=== PATIENT | female | born 1980 | race Caucasian/White ===

== ENCOUNTER 2017-09-25 20:06 | Emergency (ER) | payer MEDICARE, MEDICAID, SELFPAY ==
[2017-09-25 20:08] VITALS: BP 142/51; PULSE 93; RESP 15; TEMP 36.4; BMI 33.7
--- NOTE | 2017-09-25 20:42 | ED.VISSUMM ---
- ER Visit Summary Date of Service: 09/25/17 Chief Complaint: Depressed and suicidal ideation History of Present Illness: The patient is a 37 F history of bipolar and schizoaffective disorder. Prior suicide attempt by multiple overdoses. Patient states that she recently had a miscarriage and has become more more depressed over the last several weeks and is now suicidal. She denies any attempt at this time. She was also recently admitted for inpatient detox at another facility she does have a history of methamphetamine abuse. Physical Examination: Well-appearing middle-age female. Vital signs are stable afebrile. She does not look septic or toxic. She is in no acute distress. Vital signs are stable afebrile. H EENT exam unremarkable. No smell of alcohol. Neck nontender no trauma. Lungs clear to auscultation bilaterally. Heart regular rate and rhythm no murmur. Abdomen soft nontender. She is moving all 4 extremities. Neurovascularly intact. There is no signs of trauma. She is an old scar on her left forearm from prior laceration. But it is not acute. Neurologically she is awake and alert with no focal motor deficits. Back exam nontender. Test Results: CBC shows white count 11.5 H&H of 727. Chemistries are normal. Patient's anemia is consistent with microcytic anemia. Liver enzymes normal. Serum test negative. Tox screen negative alcohol level was 4. Emergency Department Course and Treatment: Workup and crisis evaluation. Treatment Plan: Patient is doing well on repeat exam at 2244. Boubacar Kinney from the counseling center was evaluated. He is going to see if he can get her back in the [facility]. She is comfortable with that plan. Disposition: Discharge Impression: Acute suicidal ideation Acute depression History of schizoaffective disorder and bipolar disorder. History of drug abuse This note was generated with [employer] ([employer] dictation software. It may contain incorrect words, spelling, and punctuation that were not noted in review of the chart prior to signing ED Disposition - Plan for ED Patient: Chief Complaint: Suicidal Referrals: Silvia Morales MD [Primary Care Provider] -
--- NOTE | 2017-09-25 20:45 | ED.DCSUM_ITS ---
- ER Visit Summary Date of Service: 09/25/17 Chief Complaint: Depressed and suicidal ideation History of Present Illness: The patient is a 37 F history of bipolar and schizoaffective disorder. Prior suicide attempt by multiple overdoses. Patient states that she recently had a miscarriage and has become more more depressed over the last several weeks and is now suicidal. She denies any attempt at this time. She was also recently admitted for inpatient detox at another facility she does have a history of methamphetamine abuse. Physical Examination: Well-appearing middle-age female. Vital signs are stable afebrile. She does not look septic or toxic. She is in no acute distress. Vital signs are stable afebrile. H EENT exam unremarkable. No smell of alcohol. Neck nontender no trauma. Lungs clear to auscultation bilaterally. Heart regular rate and rhythm no murmur. Abdomen soft nontender. She is moving all 4 extremities. Neurovascularly intact. There is no signs of trauma. She is an old scar on her left forearm from prior laceration. But it is not acute. Neurologically she is awake and alert with no focal motor deficits. Back exam nontender. Test Results: CBC shows white count 11.5 H&H of 727. Chemistries are normal. Patient's anemia is consistent with microcytic anemia. Liver enzymes normal. Serum test negative. Tox screen negative alcohol level was 4. Emergency Department Course and Treatment: Workup and crisis evaluation. Treatment Plan: Patient is doing well on repeat exam at 2244. Boubacar Kinney from the counseling center was evaluated. He is going to see if he can get her back in the [facility]. She is comfortable with that plan. Disposition: Discharge Impression: Acute suicidal ideation Acute depression History of schizoaffective disorder and bipolar disorder. History of drug abuse This note was generated with [employer] dictation software. It may contain incorrect words, spelling, and punctuation that were not noted in review of the chart prior to signing ED Disposition - Plan for ED Patient: Chief Complaint: Suicidal Referrals: Silvia Moralse MD [Primary Care Provider] -
--- NOTE | 2017-09-25 20:51 | ED.RN ---
MEDICATION LIST UPDATED TO [facility] UNABLE TO RECALL MEDICATIONS
[2017-09-25 21:10] LABS: Absolute Lymphocyte Count 3.09 X10^3/ul (0.83-4.51); Basophil# 0.04 X10^3/uL; Basophil% 0.3 % (0-1); Eosinophil# 0.45 X10^3/uL; Eosinophils% 3.9 % (0-5); Hematocrit 27.2 % (37-47); Hemoglobin 7.8 g/dl (12.0-15.0); Lymphocyte # 3.09 X10^3/ul (4.0); Lymphocyte % 26.8 % (19-41); Mean Corp Hgb Conc 28.7 g/gl (32-36); Mean Corpuscular Hgb 20.9 pg (27.0-32.0); Mean Corpuscular Volume 72.9 fL (81-99); Mean Platelet Vol. 10.1 fl (6.2-12.0); Monocyte# 0.91 X10^3/uL; Monocyte% 7.9 % (0-10); Neutrophil # 6.99 X10^3/uL (2.7-7.7); Neutrophil % 60.8 % (47-70); Platelet Count 342 K/mm3 (150-450); RBC Distribution Width CV 22.4 % (11.6-14.6); RBC Distribution Width SD 60.1 fl (35.1-43.9); Red Blood Count 3.73 M/mm3 (4.2-5.4); White Blood Count 11.5 K/mm3 (4.4-11.0)
[2017-09-25 21:11] LABS: Differential Indicated SCAN CRITERIA MET; POSITIVE COUNT NO; POSITIVE DIFFERENTIAL NO; POSITIVE MORPHOLOGY YES
[2017-09-25 21:21] VITALS: RESP 14
[2017-09-25 21:21] LABS: ALB/GLOB Ratio 0.8 RATIO (0.9-2.4); AST(SGOT) 13 U/L (15-37); Alanine Aminotransfer ALT/SGPT 21 U/L (13-56); Albumin, Serum 3.6 g/dL (3.2-5.0); Alkaline Phosphatase 117 U/L (45-117); Anion Gap 6 (5-15); BUN 16 mg/dL (7-18); Calcium,Total 8.7 mg/dL (8.5-10.1); Chloride 107 mmol/L (98-107); Creatinine, Serum 0.67 mg/dL (0.55-1.02); EST Glomerular Filtration Rate 107 mL/min (>60); Est Glom Filt Rate - Afr Amer 129 mL/min (>60); Estimated Creatinine Clearance 113.97 ml/min; Globulin 4.3 g/dL (2.2-4.2); Glucose 88 mg/dL (74-106); Potassium 3.8 mmol/L (3.5-5.1); Protein, Total 7.9 g/dL (6.4-8.2); Sodium Level 138 mmol/L (136-145)
[2017-09-25 21:57] LABS: Amphetamine Urine VISTA NEGATIVE (<1000 ng/mL); Barbiturate Urine VISTA NEGATIVE (< 200 ng/mL); Benzodiazepine Urine VISTA NEGATIVE (< 200 ng/mL); Cocaine Urine VISTA NEGATIVE (< 300 ng/mL); Ecstacy Urine VISTA NEGATIVE (< 500 ng/mL); Methadone Urine VISTA NEGATIVE (< 300 ng/mL); PCP Urine VISTA NEGATIVE (< 25 ng/mL); THC Urine VISTA NEGATIVE (< 50 ng/mL); Vista UDS pH Range 6
[2017-09-25 21:58] LABS: Anisocytosis 4+; Differential Comment SCANNED; Hypochromasia 2+; Microcytosis 1+
[2017-09-25 21:59] LABS: Polychromasia RARE; Tear Drop Cell 1+
[2017-09-25 22:00] VITALS: RESP 16
[2017-09-25 22:00] LABS: Ovalocyte RARE
[2017-09-25 22:03] LABS: Pregnancy, Serum, hCG Quali. NEGATIVE Negative (0-9 Nonpreg); Reactive Lymphocyte RARE
[2017-09-25 22:04] LABS: Platelet Estimate ADEQUATE (ADEQ)
--- NOTE | 2017-09-25 22:47 | ED.DEP ---
ED Disposition - Plan for ED Patient: Disposition: Home or Assisted Living Chief Complaint: Suicidal Instructions: ED Depression Referrals: Counseling,Center [GROUP OF PHYSICIANS] - As soon as possible Additional Instructions: On follow-up with counseling center. Return to the ER if you are feeling more depressed and more suicidal
[2017-09-25 23:11] VITALS: RESP 18
[2017-09-27 09:53] LABS: Pathologist Review Reviewed
== END 2017-09-25 23:30 | disposition home or self-care (01) ==
PROVIDERS: Emergency Provider Emergency Medicine; Family Provider Internal Medicine; PCP Internal Medicine
DX: R45.851 Suicidal ideations (principal); F32.9 Major depressive disorder, single episode, unspecified; F20.9 Schizophrenia, unspecified; F15.11 Other stimulant abuse, in remission; Z72.0 Tobacco use; Z79.899 Other long term (current) drug therapy
CPT/HCPCS: 36415; 80053; 80307; 80320; 84703; 85025; 99283; G0480

== ENCOUNTER 2017-10-09 13:36 | Emergency (ER) | payer MEDICARE, MEDICAID, SELFPAY ==
[2017-10-09 13:37] VITALS: BP 140/96; PULSE 86; RESP 20; TEMP 36.6; O2SAT 96; BMI 31.3
--- NOTE | 2017-10-09 14:05 | ED.RN ---
pt belongings tagged and bagged. placed in safety containers.
--- NOTE | 2017-10-09 14:07 | EKG12_ITS ---
Test Reason : ANXIETY Blood Pressure : / mmHG Vent. Rate : 077 BPM Atrial Rate : 077 BPM P-R Int : 170 ms QRS Dur : 082 ms QT Int : 394 ms P-R-T Axes : 027 014 041 degrees QTc Int : 445 ms Normal sinus rhythm Normal ECG Confirmed by KEVIN WHEATLEY, MARIAH ([id number]), science editor BG MICHAELS ([id number]) on 10/11/2017 1:28:07 PM Referred By: MELLY Confirmed By:MARIAH BROWN MD
--- NOTE | 2017-10-09 14:42 | ED.VISSUMM ---
- ER Visit Summary Date of Service: 10/09/17 Chief Complaint: [] Anxiety palpitations History of Present Illness: The patient is a 37 F [] hx of anxiety and palpitations she apparently called the paramedics because she felt very anxious she has medication she states she is taking she has counselor she sees, she expressed to nursing that she had basically gone to some democrat last night she been up all day walking in the rain she denies being homicidal or suicidal she has a home, when she became anxious she wanted to talk to somebody so she called EMS Physical Examination: [] On exam she is in no distress resting comforting the bed there is no psychomotor agitation no suicidal homicidal ideation her vital signs are normal there is no palpitations or heart tones are regular at 80 her EKG shows a rate of 77 normal rhythm nothing acute head neck chest abdomen upper lower extremities unremarkable neurologic she is awake alert conversant talking she will intermittently expressed frustration with us somehow related to the fact that she does not want to talk to us, but for the most part she is cooperative and resting comfortably in the bed Test Results: [] Emergency Department Course and Treatment: [] Watch the patient here she is remained in platelet normal vital signs with no complaints her EKG is unremarkable I explained to she should stay in her anxiety medications follow-up with her psychological counselors and return for change in symptoms she understands the local counseling center and how to obtain access in care there Treatment Plan: [] Disposition: [] Home stable Impression: [] Anxiety and palpitations This note was generated with [employer] dictation software. It may contain incorrect words, spelling, and punctuation that were not noted in review of the chart prior to signing ED Disposition - Plan for ED Patient: Chief Complaint: Anxiety Referrals: Silvia Morales MD [Primary Care Provider] -
--- NOTE | 2017-10-09 14:44 | ED.DEP ---
ED Disposition - Plan for ED Patient: Chief Complaint: Anxiety Instructions: ED Stress React Referrals: Silvia Morales MD [Primary Care Provider] - Counseling,Center [GROUP OF PHYSICIANS] -
[2017-10-09 15:03] VITALS: BP 131/48; PULSE 70; RESP 14; O2SAT 99
== END 2017-10-09 15:05 | disposition home or self-care (01) ==
PROVIDERS: Emergency Provider Emergency Medicine; Family Provider Internal Medicine; PCP Internal Medicine
DX: R00.2 Palpitations (principal); F41.9 Anxiety disorder, unspecified
CPT/HCPCS: 93005; 99285

== ENCOUNTER 2017-10-25 17:34 | Emergency (ER) | payer MEDICARE, MEDICAID, SELFPAY ==
[2017-10-25 17:35] VITALS: BP 146/97; PULSE 84; RESP 18; TEMP 36.4; O2SAT 96; BMI 37.5
--- NOTE | 2017-10-25 18:04 | EKG12_ITS ---
Test Reason : MENTAL HEALTH Blood Pressure : / mmHG Vent. Rate : 056 BPM Atrial Rate : 056 BPM P-R Int : 132 ms QRS Dur : 082 ms QT Int : 428 ms P-R-T Axes : 006 013 049 degrees QTc Int : 413 ms Sinus bradycardia Otherwise normal ECG Confirmed by PEPITO VASQUEZ ([id number]), pictures editor BG MICHAELS ([id number]) on 11/07/2017 5:41:01 PM Referred By: AMAURI Confirmed By:PEPITO VASQUEZ
--- NOTE | 2017-10-25 18:11 | ED.RN ---
PT UNSURE OF MEDS
[2017-10-25 18:15] LABS: Absolute Lymphocyte Count 3.07 X10^3/ul (0.83-4.51); Absolute Neutrophil Count 6.3 X10^3/uL (2.0-7.7); Basophil# 0.02 X10^3/uL; Basophil% 0.2 % (0-1); Differential Indicated SCAN CRITERIA MET; Eosinophil# 0.28 X10^3/uL; Eosinophils% 2.7 % (0-5); Hematocrit 31.8 % (37-47); Hemoglobin 9.1 g/dl (12.0-15.0); Lymphocyte # 3.07 X10^3/ul (4.0); Lymphocyte % 29.2 % (19-41); Mean Corp Hgb Conc 28.6 g/gl (32-36); Mean Corpuscular Hgb 19.1 pg (27.0-32.0); Mean Corpuscular Volume 66.8 fL (81-99); Mean Platelet Vol. 9.7 fl (6.2-12.0); Monocyte# 0.81 X10^3/uL; Monocyte% 7.7 % (0-10); Neutrophil # 6.33 X10^3/uL (2.7-7.7); Neutrophil % 60.1 % (47-70); POSITIVE COUNT NO; POSITIVE DIFFERENTIAL NO; POSITIVE MORPHOLOGY YES; Platelet Count 352 K/mm3 (150-450); RBC Distribution Width CV 20.9 % (11.6-14.6); RBC Distribution Width SD 50.9 fl (35.1-43.9); Red Blood Count 4.76 M/mm3 (4.2-5.4); White Blood Count 10.5 K/mm3 (4.4-11.0)
[2017-10-25 18:32] LABS: Anisocytosis 2+; Hypochromasia 1+; Platelet Estimate ADEQUATE (ADEQ); Platelet Morphology LARGE; Polychromasia RARE
[2017-10-25 18:33] LABS: Microcytosis 2+
[2017-10-25 18:33] LABS: Amphetamine Urine VISTA NEGATIVE (<1000 ng/mL); Barbiturate Urine VISTA NEGATIVE (< 200 ng/mL); Benzodiazepine Urine VISTA NEGATIVE (< 200 ng/mL); Cocaine Urine VISTA NEGATIVE (< 300 ng/mL); Ecstacy Urine VISTA NEGATIVE (< 500 ng/mL); Methadone Urine VISTA NEGATIVE (< 300 ng/mL); Mucous, Urine 0 SEEN /hpf (<or=2+); PCP Urine VISTA NEGATIVE (< 25 ng/mL); THC Urine VISTA NEGATIVE (< 50 ng/mL); Vista UDS pH Range 6
[2017-10-25 18:54] LABS: Color, Urine Yellow (Yellow); Glucose, Dipstick Normal (Normal); Ketone-Dipstick Negative (Negative); Leukocyte Esterase-Dipstick 500 /ul (Negative); Nitrite-Dipstick Negative (Negative); Occult Blood-Urine Negative /ul (Negative); Protein-Dipstick Negative (Negative); Urine Bilirubin Dipstick Negative (Negative); Urine Clarity Sl. Cloudy (Clear); Urine Urobilinogen Normal (Normal)
[2017-10-25 19:00] LABS: ALB/GLOB Ratio 0.9 RATIO (0.9-2.4); AST(SGOT) 15 U/L (15-37); Alanine Aminotransfer ALT/SGPT 19 U/L (13-56); Alkaline Phosphatase 86 U/L (45-117); Anion Gap 9 (5-15); BUN 15 mg/dL (7-18); BUN/Creat Ratio 22.4 RATIO (10-20); Calcium,Total 8.6 mg/dL (8.5-10.1); Chloride 107 mmol/L (98-107); Creatinine, Serum 0.67 mg/dL (0.55-1.02); EST Glomerular Filtration Rate 106 mL/min (>60); Est Glom Filt Rate - Afr Amer 129 mL/min (>60); Estimated Creatinine Clearance 113.97 ml/min; Globulin 4.4 g/dL (2.2-4.2); Glucose 82 mg/dL (74-106); Potassium 3.9 mmol/L (3.5-5.1); Protein, Total 8.4 g/dL (6.4-8.2); Sodium Level 140 mmol/L (136-145); Thyroid Stim Hormone (TSH) 1.51 uIU/mL (0.358-3.74)
[2017-10-25 19:06] LABS: Pregnancy, Serum, hCG Quali. NEGATIVE Negative (0-9 Nonpreg)
[2017-10-25 19:06] LABS: Bacteria RARE /hpf (None Seen); Red Blood Cells-Urine 0-5 SEEN /hpf (0-5); Squamous Epithelial Cells - UA 0-5 SEEN /hpf (5-10); White Blood Cells 0-5 SEEN /hpf (0-5)
[2017-10-25 19:07] VITALS: RESP 16
--- NOTE | 2017-10-25 19:31 | ED.VISSUMM ---
- ER Visit Summary Date of Service: 10/25/17 Chief Complaint: Abnormal behavior History of Present Illness: The patient is a 37 F who has a history of bipolar disorder who was sent from the [facility] via the [place] [employer] with abnormal and delusional behavior. Patient is reportedly noncompliant with her medications. 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 Patient really cannot carry on a conversation. She laughs at odd times. Patient denies suicidal or homicidal ideation. She cannot tell me the last time she ate. Physical Examination: Afebrile vital signs are stable Gen: Well-nourished well-developed is very unkempt Head: Normocephalic atraumatic Eyes: Perrl EOMI ENT: TMs clear no rhinorrhea moist mucous membranes Neck: Supple no lymphadenopathy no JVD nontender CVS: Regular rate rhythm no murmurs normal S1-S2 Respiratory: No distress clear to auscultation bilaterally chest nontender Abdomen: Soft nontender nondistended normal bowel sounds no masses Back: Nontender Extremity: Nontender no edema Skin: Normal color no rash Neuro: Patient is hyper alert. She has no apparent deficits. Psych: Patient has obvious delusions and flight of ideas. She has pressured speech. I believe she is manic. Test Results: Psychiatric screening labs were obtained. Emergency Department Course and Treatment: Shunt was cleared for crisis and psychiatric evaluation. Plan will be admission into psychiatric facility. Impression: 1. Acute jillian 2. Bipolar disorder This note was generated with [employer] dictation software. It may contain incorrect words, spelling, and punctuation that were not noted in review of the chart prior to signing ED Disposition - Plan for ED Patient: Chief Complaint: Mental Health Referrals: Silvia Morales MD [Primary Care Provider] -
--- NOTE | 2017-10-25 19:34 | ED.DCSUM_ITS ---
- ER Visit Summary Date of Service: 10/25/17 Chief Complaint: Abnormal behavior History of Present Illness: The patient is a 37 F who has a history of bipolar disorder who was sent from the [facility] center via the [place] [employer] with abnormal and delusional behavior. Patient is reportedly noncompliant with her medications. 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 Patient really cannot carry on a conversation. She laughs at odd times. Patient denies suicidal or homicidal ideation. She cannot tell me the last time she ate. Physical Examination: Afebrile vital signs are stable Gen: Well-nourished well-developed is very unkempt Head: Normocephalic atraumatic Eyes: Perrl EOMI ENT: TMs clear no rhinorrhea moist mucous membranes Neck: Supple no lymphadenopathy no JVD nontender CVS: Regular rate rhythm no murmurs normal S1-S2 Respiratory: No distress clear to auscultation bilaterally chest nontender Abdomen: Soft nontender nondistended normal bowel sounds no masses Back: Nontender Extremity: Nontender no edema Skin: Normal color no rash Neuro: Patient is hyper alert. She has no apparent deficits. Psych: Patient has obvious delusions and flight of ideas. She has pressured speech. I believe she is manic. Test Results: Psychiatric screening labs were obtained. Emergency Department Course and Treatment: Shunt was cleared for crisis and psychiatric evaluation. Plan will be admission into psychiatric facility. Impression: 1. Acute jillian 2. Bipolar disorder This note was generated with [employer] dictation software. It may contain incorrect words, spelling, and punctuation that were not noted in review of the chart prior to signing ED Disposition - Plan for ED Patient: Chief Complaint: Mental Health Referrals: Silvia Morales MD [Primary Care Provider] -
[2017-10-25] MEDS: Haloperidol Lactate 5 MG/ML Vial 10 MG IM (20:17)
[2017-10-25 20:19] VITALS: BP 146/79; PULSE 72; RESP 26; O2SAT 100
[2017-10-25] MEDS: LORazepam 2 MG/ML Syringe IM (21:19)
[2017-10-25 23:05] VITALS: BP 109/44; PULSE 75; RESP 16; O2SAT 98
[2017-10-26] VITALS (17 sets, daily range): BP systolic 100–159; BP diastolic 53–99; PULSE 51–105; RESP 12–18; O2SAT 95–100
--- NOTE | 2017-10-26 06:28 | NURSING ---
WAITING TO HEAR FROM [facility].
--- NOTE | 2017-10-26 06:32 | NURSING ---
RESTRAINTS D/C AT 04:15
--- NOTE | 2017-10-26 08:55 | ED.RN ---
[facility]. THEY ARE WORKING ON PLACEMENT. GOING TO TRY [facility]
[2017-10-26] MEDS: Escitalopram Oxalate 20 MG Tablet PO (10:17)
[2017-10-26] MEDS: ARIPiprazole 5 MG Tablet PO (10:17)
--- NOTE | 2017-10-26 13:21 | ED.RN ---
JAIME NUÑEZ CALLED FROM THE [facility]. HE ASKED IF WE HAD HEARD FROM [facility]. HE WAS INFORMED THAT WE HAVE NOT HEARD FROM [facility] AND HE HAS BEEN TRYING TO CONTACT THE CENTRAL OFFICE AT [facility] TO SEE WHERE WE ARE WITH THE TRANSFER OF THIS PATIENT.
--- NOTE | 2017-10-26 15:44 | ED.RN ---
PER [facility] WITH CRISIS; PT HAS BEEN ACCEPTED BY [facility]; JUST WAITING ON A BED. THEY ARE HOPEFUL THAT IT WILL BE IN THE NEXT 1-2 HRS
[2017-10-26] MEDS: Acetaminophen 500 MG Tablet 1000 MG PO (16:56)
--- NOTE | 2017-10-26 18:00 | ED.RN ---
[facility] WILL CALL US BACK WITH AN UPDATE
== END 2017-10-26 19:09 ==
PROVIDERS: Emergency Provider Emergency Medicine; Family Provider Internal Medicine; PCP Internal Medicine
DX: F31.89 Other bipolar disorder (principal); Z91.14 Patient's other noncompliance with medication regimen; Z79.899 Other long term (current) drug therapy; Z72.0 Tobacco use
CPT/HCPCS: 80053; 80307; 80320; 81001; 84443; 84703; 85025; 93005; 96372; 99285; G0480

== ENCOUNTER 2020-11-16 19:19 | Emergency (ER) | payer MEDICARE, MEDICAID, SELFPAY ==
[2020-11-16 19:20] VITALS: BP 152/81; PULSE 74; RESP 16; TEMP 36.2; O2SAT 96; BMI 37.9
--- NOTE | 2020-11-16 20:18 | EX.ED.VIS.PS ---
HPI HPI - Psych History of Present Illness Chief Complaint: Mental Health Detail of Chief Complaint: Anxiety. Patient denies being homicidal or suicidal Informant: patient Onset/Context/Timing Onset: Days Context: Gradual Onset Timing: Intermittent Current Severity: Mild Maximum Severity: Mild Narrative Narrative: 40-year-old female suffers from psychiatric disorder and anxiety. States that she was on anxiety medication which she is now been off of for 2 weeks. She thinks it is making her more anxious or possibly she is withdrawing. She said she took her self off the medication because it was making her wet the bed she absolutely denies being suicidal or homicidal. States she was on the medication for about 2 years. She denies any nausea, vomiting, diarrhea or fever. Prior similar symptoms: Yes Recent Illness/Hospitalization: No PFSH PFSH Medical History Bipolar 1 disorder Home Medications escitalopram oxalate 10 mg PO DAILY 09/25/17 [History Last Taken Unknown] benztropine 1 mg DAILY PRN PRN 11/16/20 [History Last Taken Unknown] glipizide 5 mg PO DAILY 11/16/20 [History Last Taken Unknown] hydroxyzine pamoate 50 mg PO 4X/DAY PRN PRN 11/16/20 [History Last Taken Unknown] lithium carbonate 450 mg PO DAILY 11/16/20 [History Last Taken Unknown] metformin 500 mg PO BID 11/16/20 [History Last Taken Unknown] topiramate 25 mg PO DAILY 11/16/20 [History Last Taken Unknown] Allergy/AdvReac Type Severity Reaction Status Date / Time divalproex sodium Allergy Rash Verified 11/16/20 19:22 [From Depakote] fluphenazine enanthate Allergy Other Verified 11/16/20 19:22 [From Prolixin] fluphenazine HCl Allergy Other Verified 11/16/20 19:22 [From Prolixin] nalbuphine HCl [From Nubain] Allergy Hives Verified 11/16/20 19:22 nifedipine [From Procardia] Allergy Swelling Verified 11/16/20 19:22 Penicillins Allergy Swelling Verified 11/16/20 19:22 quetiapine fumarate Allergy Other Verified 11/16/20 19:22 [From Seroquel] risperidone [From Risperdal] Allergy Hives Verified 11/16/20 19:22 ziprasidone HCl [From Geodon] Allergy Other Verified 11/16/20 19:22 ziprasidone mesylate Allergy Other Verified 11/16/20 19:22 [From Geodon] Social History Smoking Status: Current every day smoker tobacco type: cigarettes ROS ROS ED ROS Narrative Patient denies any recent illness. Review of Systems ROS Unobtainable: Denies due to encephalopathy Constitutional Constitutional ED: Denies fever(s) Eyes Eyes: Denies change in vision ENT ENT ED: Denies ear pain or sore throat Cardiovascular Cardiovascular: Reports palpitations and racing heartbeat; Denies chest pain Respiratory/Chest Respiratory/Chest: Denies cough or dyspnea Gastrointestinal Gastrointestinal: Denies abdominal pain, diarrhea, nausea or vomiting Genitourinary Genitourinary ED: Denies dysuria Musculoskeletal Musculoskeletal: Denies myalgias Integumentary Denies rash Neurologic Neurologic: Denies headache(s) Psychiatric Psychiatric: Denies depression Endocrine Endocrinology: Denies polyuria Hematologic/Lymphatic Hematologic/Lymphatic: Denies easy bruising Allergic/Immunologic Allergic/Immunologic ED: Denies urticaria EXAM Physical Exam Narrative Exam Narrative: 32-year-old female no acute distress. Vital signs stable afebrile. She does not look septic or toxic. HEENT exam normal. Moist weeks memories. Lungs are clear equal symmetrical. Heart regular rhythm rate about 104. No murmur. Abdomen soft nontender. Moving all 4 extremities. No edema. Back nontender. Neurologically awake alert no focal motor deficits. No signs of toxidrome. Const Vital Signs: 11/16/20 19:20 Temperature 97.2 F L Temperature Source Temporal Pulse Rate 74 Respiratory Rate 16 Blood Pressure 152/81 H Blood Pressure Mean 104 Pulse Ox 96 Oxygen Delivery Method Room Air Positive well nourished and well developed General Appearance ED: well developed HEENT Reports moist mucous membranes normocephalic and atraumatic Eyes PERRL and EOMs intact bilaterally Neck no lymphadenopathy, supple and no JVD General: Negative for tenderness Resp normal respiratory effort and clear to auscultation bilaterally Cardio no murmurs Rate: tachycardic Rhythm: regular rhythm GI non-tender, non-distended and no masses Auscultation: normoactive bowel sounds Palpation: soft; Negative for tender Back/Spine no CVA tenderness Extremity normal to inspection General Extremety ED: Negative for edema or tenderness General Extremity: Negative for edema Neuro oriented x3 and CN's II-XII intact bilaterally Sensorium / Orientation: alert, oriented to person, oriented to place and oriented to time Motor Exam: strength 5/5 throughout Psych mental status grossly normal Skin Lesions: no lesions Rashes: no rashes MDM MDM MDM Narrative Medical decision making narrative: Patient with mild anxiety. Otherwise exam unremarkable. We checked the blood sugar was 110. She will be discharged home. Discharge Plan Triage Chief Complaint: Mental Health ED Provider: Jhonny Rodrigues Dx/Rx/DC Orders Clinical Impression: Anxiety Instructions: ED Anxiety Reaction Prescriptions: No Action escitalopram oxalate 20 MG tablet 10 mg PO DAILY RF: 0 metformin 500 mg Tablet 500 mg PO BID RF: 0 hydroxyzine pamoate 50 mg Capsule 50 mg PO 4X/DAY PRN PRN (Reason: Anxiety) RF: 0 topiramate 25 mg Tablet 25 mg PO DAILY RF: 0 lithium carbonate 450 mg Tablet Extended Release 450 mg PO DAILY RF: 0 benztropine 1 mg tablet 1 mg DAILY PRN PRN (Reason: Spasms) RF: 0 glipizide 5 mg Tablet 5 mg PO DAILY RF: 0 Primary Care Provider: Silvia Morales Referrals: Silvia Morales MD [Primary Care Provider] - As Needed Activity Restrictions/Additional Instructions: Your blood sugar was fine it was 110. Follow-up with your doctor as needed. Disposition Disposition: Home, self care
[2020-11-16 20:25] LABS: Bedside Glucose 110 mg/dL (70-110)
== END 2020-11-16 20:41 | disposition home or self-care (01) ==
LOC: ED 20:39
PROVIDERS: Emergency Provider Emergency Medicine
DX: F41.9 Anxiety disorder, unspecified (principal); F17.210 Nicotine dependence, cigarettes, uncomplicated; Z79.84 Long term (current) use of oral hypoglycemic drugs; Z79.899 Other long term (current) drug therapy
CPT/HCPCS: 82962; 99282

== ENCOUNTER 2021-08-13 23:59 | Emergency (ER) | payer MEDICARE, MEDICAID, SELFPAY ==
[2021-08-14] VITALS (9 sets, daily range): BP systolic 121–134; BP diastolic 64–78; PULSE 64–81; RESP 16–18; TEMP 36.6; O2SAT 94–99; BMI 34.2
--- NOTE | 2021-08-14 00:28 | EKG12_ITS ---
Test Reason : MENTAL HEALTH Blood Pressure : / mmHG Vent. Rate : 049 BPM Atrial Rate : 049 BPM P-R Int : 136 ms QRS Dur : 084 ms QT Int : 466 ms P-R-T Axes : 015 034 051 degrees QTc Int : 420 ms Sinus bradycardia Otherwise normal ECG Confirmed by CELESTE WHEATLEY, AMOS ([id number]), publishing editor POPEYE BRIDGES ([id number]) on 08/17/2021 11:07:25 A M Referred By: DIANA Confirmed By:ALYSON ALONSO MD
[2021-08-14 00:48] LABS: Internal QC Validated? YES +Cl - CLEAR BKGD; Pregnancy, Urine Negative Negative
[2021-08-14 00:48] LABS: Absolute Lymphocyte Count 4.08 X10^3/uL (0.83-4.51); Absolute Neutrophil Count 8.7 X10^3/uL (2.0-7.7); Basophil# 0.05 X10^3/uL; Basophil% 0.4 % (0-1); Eosinophil# 0.36 X10^3/uL; Eosinophils% 2.6 % (0-5); Hematocrit 41.2 % (37-47); Hemoglobin 13.4 g/dL (12.0-15.0); Lymphocyte # 4.08 X10^3/ul (0.83-4.51); Lymphocyte % 28.9 % (19-41); Mean Corp Hgb Conc 32.5 g/dL (32-36); Mean Corpuscular Hgb 24.9 pg (27.0-32.0); Mean Corpuscular Volume 76.4 fL (81-99); Mean Platelet Vol. 11.3 fl (6.2-12.0); Monocyte# 0.87 X10^3/uL; Monocyte% 6.2 % (0-10); NRBC Flagged by Analyzer 0 % (0-5); Neutrophil # 8.68 X10^3/uL (2.7-7.7); Neutrophil % 61.5 % (47-70); Platelet Count 357 K/mm3 (150-450); RBC Distribution Width CV 15.7 % (11.6-14.6); RBC Distribution Width SD 43.2 fl (35.1-43.9); Red Blood Count 5.39 M/mm3 (4.2-5.4); White Blood Count 14.1 K/mm3 (4.4-11.0)
[2021-08-14 01:04] LABS: Anion Gap 4 (5-15); BUN 16 mg/dL (7-18); BUN/Creat Ratio 19.6 RATIO (10-20); Calcium,Total 9.2 mg/dL (8.5-10.1); Chloride 106 mmol/L (98-107); Creatinine, Serum 0.82 mg/dL (0.55-1.02); EST Glomerular Filtration Rate 83 mL/min (>60); Est Glom Filt Rate - Afr Amer 100 mL/min (>60); Estimated Creatinine Clearance 86.23 ml/min; Glucose 91 mg/dL (74-106); Potassium 3.8 mmol/L (3.5-5.1); Sodium Level 138 mmol/L (136-145)
[2021-08-14 01:05] LABS: Amphetamine Urine VISTA NEGATIVE (<1000 ng/mL); Barbiturate Urine VISTA NEGATIVE (< 200 ng/mL); Benzodiazepine Urine VISTA NEGATIVE (< 200 ng/mL); Cocaine Urine VISTA POSITIVE (< 300 ng/mL); Ecstacy Urine VISTA NEGATIVE (< 500 ng/mL); Methadone Urine VISTA NEGATIVE (< 300 ng/mL); PCP Urine VISTA NEGATIVE (< 25 ng/mL); THC Urine VISTA NEGATIVE (< 50 ng/mL); Vista UDS pH Range 6
[2021-08-14 01:12] LABS: Acetaminophen (Tylenol) Level < 2.0 ug/mL (10.0-30.0); Salicylate 3.7 mg/dL (2.8-20.0)
--- NOTE | 2021-08-14 01:51 | EX.ED.DYSGE1 ---
HPI History of Present Illness Chief Complaint: Mental Health Narrative Narrative: Patient is a 41-year-old female who states in February 2021 she was admitted to a psychiatric hospital secondary to depression with suicidal ideation. She states that she was on medications for this for about 3 weeks when she was released but then after that stopped her medications. She states she feels like she is beginning to spiral out of control and has been having worsening thoughts of depression and suicidal ideation. She denies any plan at this time. She does state that 2 days ago she decided it would be a good idea to punch herself in the face multiple times. She states she was trying to hurt herself by doing this. She also admits to doing cocaine in the last few days which she states she will do every few weeks. At this time she reports depression with suicidal ideation but she denies any plan and she denies any homicidal ideation. She states that she feels she would benefit from placement in a psychiatric facility once again to try and get back on medication and therefore presents for evaluation. [facility] Medical History ADD (attention deficit disorder) Bipolar 1 disorder Depression Substance abuse Home Medications sulfamethoxazole-trimethoprim [Bactrim DS] 1 tab PO BID 5 Days #10 tab 08/14/21 [Rx Last Taken Unknown] Allergy/AdvReac Type Severity Reaction Status Date / Time divalproex sodium Allergy Rash Verified 11/16/20 19:22 [From Depakote] fluphenazine enanthate Allergy Other Verified 11/16/20 19:22 [From Prolixin] fluphenazine HCl Allergy Other Verified 11/16/20 19:22 [From Prolixin] nalbuphine HCl [From Nubain] Allergy Hives Verified 11/16/20 19:22 nifedipine [From Procardia] Allergy Swelling Verified 11/16/20 19:22 Penicillins Allergy Swelling Verified 11/16/20 19:22 quetiapine fumarate Allergy Other Verified 11/16/20 19:22 [From Seroquel] risperidone [From Risperdal] Allergy Hives Verified 11/16/20 19:22 ziprasidone HCl [From Geodon] Allergy Other Verified 11/16/20 19:22 ziprasidone mesylate Allergy Other Verified 11/16/20 19:22 [From Geodon] Social History Smoking Status: Current every day smoker tobacco type: cigarettes ROS ROS ED Constitutional Constitutional ED: Denies chills or fever(s) Eyes Eyes: Denies change in vision or diplopia ENT ENT ED: Denies sore throat Cardiovascular Cardiovascular: Denies chest pain Respiratory/Chest Respiratory/Chest: Denies cough or dyspnea Gastrointestinal Gastrointestinal: Denies abdominal pain, diarrhea, nausea or vomiting Genitourinary Genitourinary ED: Denies dysuria Musculoskeletal Musculoskeletal: Denies myalgias Integumentary Reports Abrasions; Denies rash Neurologic Neurologic: Denies headache(s) Psychiatric Psychiatric: Reports depression and suicidal thoughts Hematologic/Lymphatic Hematologic/Lymphatic: Denies easy bleeding or easy bruising EXAM Physical Exam Const Vital Signs: 08/14/21 00:00 08/14/21 02:15 08/14/21 03:15 Temperature 97.9 F Temperature Source Temporal Pulse Rate 75 Respiratory Rate 18 16 16 Blood Pressure 121/77 H Blood Pressure Mean 91 Pulse Ox 98 Oxygen Delivery Method Room Air 08/14/21 04:15 08/14/21 05:20 08/14/21 06:20 Temperature Temperature Source Pulse Rate Respiratory Rate 16 16 16 Blood Pressure Blood Pressure Mean Pulse Ox Oxygen Delivery Method 08/14/21 07:21 Temperature Temperature Source Pulse Rate 81 Respiratory Rate 18 Blood Pressure 131/64 H Blood Pressure Mean 86 Pulse Ox 94 Oxygen Delivery Method Room Air Positive well nourished, well developed and obese General Appearance ED: well developed Nutritional Appearance: obese HEENT Reports moist mucous membranes HEENT Narrative: Patient has swelling and ecchymosis around bilateral eyes consistent with her report of punching herself but otherwise there are no signs of depressed or basilar skull fracture. No septal hematoma noted Eyes PERRL and EOMs intact bilaterally Eyes Narrative: Swelling with ecchymosis around bilateral eyes consistent report of self-induced trauma. No hyphema noted. Neck supple Resp normal respiratory effort and clear to auscultation bilaterally Cardio regular rate and regular rhythm GI normal to inspection, nondistended, normoactive bowel sounds, non-tender, non-distended and no masses Auscultation: normoactive bowel sounds Palpation: soft Extremity normal to inspection Neuro oriented x3 and CN's II-XII intact bilaterally Sensorium / Orientation: alert Motor Exam: strength 5/5 throughout Psych Psych Narrative: Patient has a depressed affect with suicidal ideation but no homicidal ideation Mood & Affect: depressed Skin no rashes or lesions noted Skin Narrative: Soft tissue changes around the eyes as documented above MDM MDM MDM Narrative Medical decision making narrative: Presented to the ER with stable vitals. She reported that she has been having worsening suicidal ideation with depression but denies any plan. She does admit to recent cocaine use but states she has not had any within the last 2 days. She states that she would like to be readmitted as she was in February 2021 because she feels like her symptoms are beginning to spiral and she is afraid she may try and hurt herself if this is left unchecked. Secondary to this concern a psychiatric work-up was obtained. Work-up revealed elevated white blood cell count and urine sample does show infection which could be the cause of this. She does not have signs of urosepsis or acute kidney injury so therefore she just requires oral antibiotic. She did test positive for cocaine consistent with her report of using it 2 days ago but her EKG is totally sinus bradycardia and she is not hypertensive which goes against any type of immediate ingestion. Therefore at this time the patient is medically cleared from an ER standpoint. The patient was evaluated by crisis center and they agree that with her worsening symptoms and request for admission at they will attempt placement at this time. The patient is medically cleared for placement/transfer to a psychiatric facility. Lab Data Attestation: I reviewed the patient's lab results. Labs: Laboratory Results - last 24 hr 08/14/21 08/14/21 08/14/21 00:10 00:10 00:10 WBC RBC Hgb Hct MCV MCH MCHC RDW Std Deviation RDW Coeff of Deonte Plt Count MPV Immature Gran % (Auto) Neut % (Auto) Lymph % (Auto) [place] % (Auto) Eos % (Auto) Baso % (Auto) Absolute Neuts (auto) Absolute Lymphs (auto) Nucleated RBC % Sodium Potassium Chloride Carbon Dioxide Anion Gap BUN Creatinine Estim Creat Clear Calc Est GFR (MDRD) Af Amer Est GFR (MDRD) Non-Af BUN/Creatinine Ratio Glucose Calcium Urine Color Yellow Urine Clarity Clear Urine pH 7.0 Ur Specific [place] 1.015 Urine Protein 15 H Urine Glucose (UA) Normal Urine Ketones Negative Urine Occult Blood 50 H Urine Nitrite Negative Urine Bilirubin Negative Urine Urobilinogen Normal Ur Leukocyte Esterase 500 H Urine RBC 0 SEEN Urine WBC 10-25 SEEN Ur Squamous Epith Cells 0-5 SEEN Urine Bacteria 1+ Urine Mucus 0 SEEN Urine Test Negative Salicylates Urine Opiates Screen NEGATIVE Urine Methadone Screen NEGATIVE Acetaminophen Ur Barbiturates Screen NEGATIVE Ur Phencyclidine Scrn NEGATIVE Ur Amphetamines Screen NEGATIVE MDMA (Ecstasy) Screen NEGATIVE U Benzodiazepines Scrn NEGATIVE Urine Cocaine Screen POSITIVE H U Cannabinoids Screen NEGATIVE Ur Drug Screen Comment Ethyl Alcohol 08/14/21 08/14/21 08/14/21 00:30 00:30 00:30 WBC 14.1 H RBC 5.39 Hgb 13.4 Hct 41.2 MCV 76.4 L MCH 24.9 L MCHC 32.5 RDW Std Deviation 43.2 RDW Coeff of Deonte 15.7 H Plt Count 357 MPV 11.3 Immature Gran % (Auto) 0.400 Neut % (Auto) 61.5 Lymph % (Auto) 28.9 [place] % (Auto) 6.2 Eos % (Auto) 2.6 Baso % (Auto) 0.4 Absolute Neuts (auto) 8.7 H Absolute Lymphs (auto) 4.08 Nucleated RBC % 0 Sodium 138 Potassium 3.8 Chloride 106 Carbon Dioxide 28.0 Anion Gap 4 L BUN 16 Creatinine 0.82 Estim Creat Clear Calc 86.23 Est GFR (MDRD) Af Amer 100 Est GFR (MDRD) Non-Af 83 BUN/Creatinine Ratio 19.6 Glucose 91 Calcium 9.2 Urine Color Urine Clarity Urine pH Ur Specific [place] Urine Protein Urine Glucose (UA) Urine Ketones Urine Occult Blood Urine Nitrite Urine Bilirubin Urine Urobilinogen Ur Leukocyte Esterase Urine RBC Urine WBC Ur Squamous Epith Cells Urine Bacteria Urine Mucus Urine Test Salicylates 3.7 Urine Opiates Screen Urine Methadone Screen Acetaminophen < 2.0 L Ur Barbiturates Screen Ur Phencyclidine Scrn Ur Amphetamines Screen MDMA (Ecstasy) Screen U Benzodiazepines Scrn Urine Cocaine Screen U Cannabinoids Screen Ur Drug Screen Comment Ethyl Alcohol 13.0 Discharge Plan Triage Chief Complaint: Mental Health ED Provider: Chaparro Kimble Dx/Rx/DC Orders Clinical Impression: Depression with suicidal ideation, Urinary tract infection Prescriptions: New sulfamethoxazole-trimethoprim [Bactrim DS] 800-160 mg tablet 1 tab PO BID 5 Days Qty: 10 RF: 0 Primary Care Provider: Yosvany Cox NP Referrals: Yosvany Cox BLOCKING MACHINE TENDER, BLOCKING MACHINE TENDER-C [Primary Care Provider] - Disposition Disposition: Psychiatric Hospital or Unit
[2021-08-14 02:24] LABS: Mucous, Urine 0 SEEN /hpf (<or=2+); Red Blood Cells-Urine 0 SEEN /hpf (0-5)
[2021-08-14 02:25] LABS: Color, Urine Yellow (Yellow); Glucose, Dipstick Normal (Normal); Ketone-Dipstick Negative (Negative); Leukocyte Esterase-Dipstick 500 /ul (Negative); Nitrite-Dipstick Negative (Negative); Occult Blood-Urine 50 /ul (Negative); Protein-Dipstick 15 mg/dl (Negative); Specific Gravity, Urine 1.015 (1.002-1.030); Urine Bilirubin Dipstick Negative (Negative); Urine Clarity Clear (Clear); Urine Urobilinogen Normal (Normal)
[2021-08-14 02:31] LABS: Bacteria 1+ /hpf (None Seen); Squamous Epithelial Cells - UA 0-5 SEEN /hpf (5-10); White Blood Cells 10-25 SEEN /hpf (0-5)
[2021-08-14] MEDS: Smz/Tmp Ds Tablet 1 TABLET PO (07:22)
[2021-08-14] MEDS: hydrOXYzine PAM 25 MG Capsule 50 MG PO ×2 (08:59→15:32)
--- NOTE | 2021-08-14 11:57 | CM.ED ---
Social Work Telephone call from Crisis, patient accepted to [facility] by Dr. Mason to [facility]. Nurse to call report to [phone]. Patient, medical team and patient father updated on above. Lactation Consultant to set up transportation. PLAN: [facility] [place], [place]
--- NOTE | 2021-08-14 12:45 | ED.RN ---
CALLED PHYSICIANS FOR A RIDE, THE ETA IS 4 HOURS. ACCEPTED AT [facility].
[2021-08-14] MEDS: Acetaminophen 500 MG Tablet 1000 MG PO (12:51)
== END 2021-08-14 15:45 ==
PROVIDERS: Emergency Provider Emergency Medicine; PCP Nurse Practitioner Primary Care; Visit Provider Emergency Medicine
DX: F32.A Depression, unspecified (principal); R45.851 Suicidal ideations; N39.0 Urinary tract infection, site not specified; F17.210 Nicotine dependence, cigarettes, uncomplicated; E66.9 Obesity, unspecified
CPT/HCPCS: 80048; 80307; 80329; 81001; 81025; 82077; 85025; 87811; 93005; 99285; G0480

== ENCOUNTER 2021-09-11 15:52 | Emergency (ER) | payer MEDICARE, MEDICAID, SELFPAY ==
[2021-09-11 15:53] VITALS: BP 148/128; PULSE 102; RESP 16; TEMP 36.6; O2SAT 98; BMI 34.2
--- NOTE | 2021-09-11 16:12 | ED.RN ---
Patient became more agitated and upset while this nurse was assessing and asking assessment questions. Patient denies suicidal ideation multi times. Patient became increasingly agitated when this nurse gave her socks due to coming to the ED without shoes. Patient then gets up and walks out of the department saying she was leaving. Patient then came back into the department with her father. Patient continues to be agitated and once again denies suicidal ideation. This nurse will continue to monitor and father is at the bedside.
[2021-09-11 17:18] LABS: Absolute Lymphocyte Count 2.98 X10^3/uL (0.83-4.51); Absolute Neutrophil Count 10.6 X10^3/uL (2.0-7.7); Basophil# 0.06 X10^3/uL; Basophil% 0.4 % (0-1); Eosinophil# 0.37 X10^3/uL; Eosinophils% 2.5 % (0-5); Hematocrit 39.3 % (37-47); Hemoglobin 12.5 g/dL (12.0-15.0); Lymphocyte # 2.98 X10^3/ul (0.83-4.51); Lymphocyte % 19.7 % (19-41); Mean Corp Hgb Conc 31.8 g/dL (32-36); Mean Corpuscular Hgb 24.3 pg (27.0-32.0); Mean Corpuscular Volume 76.3 fL (81-99); Mean Platelet Vol. 10.7 fl (6.2-12.0); Monocyte# 1.08 X10^3/uL; Monocyte% 7.2 % (0-10); NRBC Flagged by Analyzer 0 % (0-5); Neutrophil # 10.56 X10^3/uL (2.7-7.7); Neutrophil % 69.9 % (47-70); Platelet Count 364 K/mm3 (150-450); RBC Distribution Width CV 16.1 % (11.6-14.6); RBC Distribution Width SD 43.7 fl (35.1-43.9); Red Blood Count 5.15 M/mm3 (4.2-5.4); White Blood Count 15.1 K/mm3 (4.4-11.0)
--- NOTE | 2021-09-11 17:24 | EDS_ITS ---
HPI History of Present Illness Chief Complaint: Substance Abuse Informant: patient Onset/Context/Timing Onset: Days (3) Timing: Continuous Quality: Confused, difficulty communicating Location: Generalized Worsened by: Nothing Relieved by: Nothing Narrative Narrative: Patient presents with confusion and difficulty communicating. Patient states she used meth 3 days ago. Patient states she has not used any since that time. Patient states that she has been having difficulty communicating what she wants to say. Patient denies any difficulty talking however. She feels like people do not understand what she is trying to tell them. Patient admits to a mild headache. Patient admits to a sore throat and rhinorrhea. Patient denies any chest pain or shortness of breath. Patient denies any nausea or vomiting. [facility] Medical History ADD (attention deficit disorder) Bipolar 1 disorder Depression Substance abuse Home Medications sulfamethoxazole-trimethoprim [Bactrim DS] 1 tab PO BID 5 Days #10 tab 08/14/21 [Rx Last Taken Unknown] Allergy/AdvReac Type Severity Reaction Status Date / Time divalproex sodium Allergy Rash Verified 09/11/21 15:57 [From Depakote] fluphenazine enanthate Allergy Other Verified 09/11/21 15:57 [From Prolixin] fluphenazine HCl Allergy Other Verified 09/11/21 15:57 [From Prolixin] nalbuphine HCl [From Nubain] Allergy Hives Verified 09/11/21 15:57 nifedipine [From Procardia] Allergy Swelling Verified 09/11/21 15:57 Penicillins Allergy Swelling Verified 09/11/21 15:57 quetiapine fumarate Allergy Other Verified 09/11/21 15:57 [From Seroquel] risperidone [From Risperdal] Allergy Hives Verified 09/11/21 15:57 ziprasidone HCl [From Geodon] Allergy Other Verified 09/11/21 15:57 ziprasidone mesylate Allergy Other Verified 09/11/21 15:57 [From Geodon] Social History Smoking Status: Current every day smoker tobacco type: cigarettes ROS ROS ED Constitutional Constitutional ED: Denies chills or fever(s) Eyes Eyes: Denies blurry vision or change in vision ENT ENT ED: Reports rhinorrhea and sore throat Cardiovascular Cardiovascular: Denies chest pain or palpitations Respiratory/Chest Respiratory/Chest: Denies cough or dyspnea Gastrointestinal Gastrointestinal: Denies nausea or vomiting Genitourinary Genitourinary ED: Denies dysuria or hematuria Musculoskeletal Musculoskeletal: Denies back pain or neck pain Integumentary Denies abscess or rash Neurologic Neurologic: Reports headache(s); Denies weakness Allergic/Immunologic Allergic/Immunologic ED: Denies mouth swelling or urticaria EXAM Physical Exam Const Vital Signs: 09/11/21 15:53 09/11/21 18:13 09/11/21 18:58 Temperature 98 F Temperature Source Temporal Pulse Rate 102 H 92 107 H Respiratory Rate 16 22 H 17 Blood Pressure 148/128 H 123/103 H Blood Pressure Mean 134 109 Pulse Ox 98 98 96 Oxygen Delivery Method Room Air Room Air Positive well nourished, well developed, obese and unkempt General Appearance ED: unkempt, well developed and NAD Nutritional Appearance: obese HEENT Reports moist mucous membranes Neck supple and no JVD Resp normal respiratory effort and clear to auscultation bilaterally Cardio regular rate, regular rhythm and no murmurs GI normal to inspection, nondistended, normoactive bowel sounds and non-tender Palpation: soft Extremity normal to inspection General Extremety ED: Negative for edema or tenderness General Extremity: Negative for edema Neuro oriented x3, CN's II-XII intact bilaterally and no sensory deficits noted Sensorium / Orientation: alert Motor Exam: strength 5/5 throughout Psych mental status grossly normal Appearance: unkempt Skin no rashes or lesions noted MDM MDM MDM Narrative Medical decision making narrative: CT scan of the brain was obtained. There is no acute intracranial abnormality. This was interpreted by the radiologist and reviewed by myself. CBC shows a mild leukocytosis of 15.1. Comprehensive metabolic profile was within normal limits. Serum hCG was negative. Urinalysis does not show any evidence of urinary tract infection. Patient was having difficulty laying still during CT scan. Patient was ordered a dose of Ativan to help with this. Patient refused this. Patient states she wants to go home. Patient was instructed to follow-up with her primary care physician in 5 to 7 days. Patient understood and was agreeable with the plan. All questions were answered. Lab Data Labs: Laboratory Results - last 24 hr 04/09/11/21 09/11/21 17:07 17:07 17:07 WBC 15.1 H RBC 5.15 Hgb 12.5 Hct 39.3 MCV 76.3 L MCH 24.3 L MCHC 31.8 L RDW Std Deviation 43.7 RDW Coeff of Deonte 16.1 H Plt Count 364 MPV 10.7 Immature Gran % (Auto) 0.300 Neut % (Auto) 69.9 Lymph % (Auto) 19.7 [place] % (Auto) 7.2 Eos % (Auto) 2.5 Baso % (Auto) 0.4 Absolute Neuts (auto) 10.6 H Absolute Lymphs (auto) 2.98 Nucleated RBC % 0 Sodium 136 Potassium 3.7 Chloride 104 Carbon Dioxide 25.0 Anion Gap 7 BUN 11 Creatinine 0.66 Estim Creat Clear Calc 107.13 Est GFR (MDRD) Af Amer 127 Est GFR (MDRD) Non-Af 105 BUN/Creatinine Ratio 16.6 Glucose 103 Calcium 8.9 Total Bilirubin 0.50 AST 27 ALT 41 Alkaline Phosphatase 113 Total Protein 7.8 Albumin 3.8 Globulin 4.0 Albumin/Globulin Ratio 1.0 Serum , Qual NEGATIVE Urine Color Urine Clarity Urine pH Ur Specific [place] Urine Protein Urine Glucose (UA) Urine Ketones Urine Occult Blood Urine Nitrite Urine Bilirubin Urine Urobilinogen Ur Leukocyte Esterase Urine RBC Urine WBC Ur Squamous Epith Cells Urine Bacteria Urine Mucus 09/11/21 17:26 WBC RBC Hgb Hct MCV MCH MCHC RDW Std Deviation RDW Coeff of Deonte Plt Count MPV Immature Gran % (Auto) Neut % (Auto) Lymph % (Auto) [place] % (Auto) Eos % (Auto) Baso % (Auto) Absolute Neuts (auto) Absolute Lymphs (auto) Nucleated RBC % Sodium Potassium Chloride Carbon Dioxide Anion Gap BUN Creatinine Estim Creat Clear Calc Est GFR (MDRD) Af Amer Est GFR (MDRD) Non-Af BUN/Creatinine Ratio Glucose Calcium Total Bilirubin AST ALT Alkaline Phosphatase Total Protein Albumin Globulin Albumin/Globulin Ratio Serum , Qual Urine Color Yellow Urine Clarity Clear Urine pH 6.0 Ur Specific [place] 1.020 Urine Protein Negative Urine Glucose (UA) Normal Urine Ketones 15 H Urine Occult Blood Negative Urine Nitrite Negative Urine Bilirubin Negative Urine Urobilinogen Normal Ur Leukocyte Esterase Negative Urine RBC 0 SEEN Urine WBC 0 SEEN Ur Squamous Epith Cells 0-5 SEEN Urine Bacteria 0 SEEN Urine Mucus 0 SEEN Radiography Diagnostic Testing: Clinical Impression(s) from Imaging Studies Brain CT 09/11/21 17:45 IMPRESSION: Negative head/brain CT without intravenous contrast. Electronically Signed: Jhoan Ott MD at 18:17 EDT , Discharge Plan Triage Chief Complaint: Substance Abuse ED Provider: Donald Shen Dx/Rx/DC Orders Clinical Impression: Anxiety, Methamphetamine abuse Instructions: ED Anxiety Reaction, ED Drug Abuse Prescriptions: No Action sulfamethoxazole-trimethoprim [Bactrim DS] 800-160 mg tablet 1 tab PO BID 5 Days Qty: 10 RF: 0 Primary Care Provider: Yosvany Cox NP Referrals: Yosvany Cox CABLE TELEVISION TECHNICIAN, CABLE TELEVISION TECHNICIAN-C [Primary Care Provider] - 3-5 Days Disposition Disposition: Home, Self Care Discharge Date/Time: 09/11/21 18:59
[2021-09-11 17:28] LABS: Internal QC Validated? YES +Cl - CLEAR BKGD; Pregnancy, Serum, hCG Quali. NEGATIVE Negative
[2021-09-11 17:34] LABS: AST(SGOT) 27 U/L (15-37); Alanine Aminotransfer ALT/SGPT 41 U/L (13-56); Albumin, Serum 3.8 g/dL (3.2-5.0); Alkaline Phosphatase 113 U/L (45-117); Anion Gap 7 (5-15); BUN 11 mg/dL (7-18); BUN/Creat Ratio 16.6 RATIO (10-20); Calcium,Total 8.9 mg/dL (8.5-10.1); Chloride 104 mmol/L (98-107); Creatinine, Serum 0.66 mg/dL (0.55-1.02); EST Glomerular Filtration Rate 105 mL/min (>60); Est Glom Filt Rate - Afr Amer 127 mL/min (>60); Estimated Creatinine Clearance 107.13 ml/min; Glucose 103 mg/dL (74-106); Potassium 3.7 mmol/L (3.5-5.1); Protein, Total 7.8 g/dL (6.4-8.2); Sodium Level 136 mmol/L (136-145)
[2021-09-11 17:36] LABS: Bacteria 0 SEEN /hpf (None Seen); Mucous, Urine 0 SEEN /hpf (<or=2+); Red Blood Cells-Urine 0 SEEN /hpf (0-5); White Blood Cells 0 SEEN /hpf (0-5)
[2021-09-11 17:39] LABS: Color, Urine Yellow (Yellow); Glucose, Dipstick Normal (Normal); Ketone-Dipstick 15 mg/dl (Negative); Leukocyte Esterase-Dipstick Negative /ul (Negative); Nitrite-Dipstick Negative (Negative); Occult Blood-Urine Negative /ul (Negative); Protein-Dipstick Negative (Negative); Urine Bilirubin Dipstick Negative (Negative); Urine Clarity Clear (Clear); Urine Urobilinogen Normal (Normal)
[2021-09-11 17:44] LABS: Squamous Epithelial Cells - UA 0-5 SEEN /hpf (5-10)
--- NOTE | 2021-09-11 17:45 | CT_ITS ---
EXAM: CT HEAD WITHOUT INTRAVENOUS CONTRAST CLINICAL INDICATION: Confusion TECHNIQUE: Multiple axial images were obtained of the head without intravenous contrast. This CT exam was performed using one or more of the following dose reduction techniques: automated exposure control, adjustment of the mA and/or kV according to patient size, and/or use of iterative reconstruction technique. This report was created using [employer] report generation technology. RADIATION DOSAGE (If Required by State): CTDIvol = 44.99 mGy, DLP = 897.35 mGycm. COMPARISON: None. FINDINGS: BRAIN AND EXTRA-AXIAL SPACES: Unremarkable. No intra- or extra-axial hemorrhage. No evidence of acute infarct. No intracranial mass or mass effect. There is preservation of the rodriguez/white matter interface. Posterior fossa structures are unremarkable. Ventricles are appropriate for age. No hydrocephalus. Basal cisterns are patent. BONES/JOINTS: Unremarkable. No discrete lytic or blastic abnormalities. SINUSES: Unremarkable as visualized. Clear. MASTOID AIR CELLS: Unremarkable. Clear. ORBITS: Visualized globes, extraocular muscles, optic nerves and retrobulbar fat appear unremarkable. CT/Brain/Head without Contrast IMPRESSION: Negative head/brain CT without intravenous contrast. Electronically Signed: Jhoan Ott MD at 18:17 EDT ,
[2021-09-11] MEDS: LORazepam 2 MG/ML Syringe 1 MG IV (18:08)
[2021-09-11 18:13] VITALS: BP 123/103; PULSE 92; RESP 22; O2SAT 98
--- NOTE | 2021-09-11 18:37 | CM.ED ---
SW Note SW spoke to MD. No social work referral for mental health at this time per MD. MD plans to make referral to [facility] for patient. PAVITHRA provided RN Polly Livingston with resource list to provide to patient. (PAVITHRA did not give resource list as patient continues to be paranoid related to drug (meth) use). Karis ELLIS
[2021-09-11 18:58] VITALS: PULSE 107; RESP 17; O2SAT 96
== END 2021-09-11 18:59 | disposition home or self-care (01) ==
PROVIDERS: Emergency Provider Emergency Medicine; PCP Nurse Practitioner Primary Care; Visit Provider Emergency Medicine
DX: F41.9 Anxiety disorder, unspecified (principal); F15.10 Other stimulant abuse, uncomplicated; J02.9 Acute pharyngitis, unspecified; R41.0 Disorientation, unspecified; F17.210 Nicotine dependence, cigarettes, uncomplicated; R51.9 Headache, unspecified
CPT/HCPCS: 70450; 80053; 81001; 84703; 85025; 96374; 99284; A4216

== ENCOUNTER 2021-10-01 09:12 | Emergency (ER) | payer MEDICARE, MEDICAID, SELFPAY ==
[2021-10-01 09:14] VITALS: BP 157/120; PULSE 113; RESP 16; TEMP 35.6; O2SAT 96; BMI 32.8
[2021-10-01 09:47] LABS: Absolute Lymphocyte Count 2.71 X10^3/uL (0.83-4.51); Absolute Neutrophil Count 10.7 X10^3/uL (2.0-7.7); Basophil# 0.07 X10^3/uL; Basophil% 0.5 % (0-1); Eosinophil# 0.35 X10^3/uL; Eosinophils% 2.3 % (0-5); Hematocrit 37.1 % (37-47); Hemoglobin 11.7 g/dL (12.0-15.0); Lymphocyte # 2.71 X10^3/ul (0.83-4.51); Lymphocyte % 18.2 % (19-41); Mean Corp Hgb Conc 31.5 g/dL (32-36); Mean Corpuscular Hgb 23.8 pg (27.0-32.0); Mean Corpuscular Volume 75.6 fL (81-99); Mean Platelet Vol. 10.6 fl (6.2-12.0); Monocyte# 1.09 X10^3/uL; Monocyte% 7.3 % (0-10); NRBC Flagged by Analyzer 0 % (0-5); Neutrophil # 10.65 X10^3/uL (2.7-7.7); Neutrophil % 71.4 % (47-70); Platelet Count 391 K/mm3 (150-450); RBC Distribution Width CV 15.7 % (11.6-14.6); RBC Distribution Width SD 42.6 fl (35.1-43.9); Red Blood Count 4.91 M/mm3 (4.2-5.4); White Blood Count 14.9 K/mm3 (4.4-11.0)
--- NOTE | 2021-10-01 09:50 | EX.ED.SAOD ---
HPI History of Present Illness Chief Complaint: Substance Abuse Narrative Narrative: 41-year-old female with history of methamphetamine use presenting with concern that he either coming down from methamphetamine use 2 days ago or that she might be withdrawing from but was possibly an opioid mixed with her methamphetamine. She states that whenever she took was stronger. She states she took 2 hotlines of it. Patient states that currently she feels a little jittery. She does not feel confused. She states she does not typically do any kind of opioid. She does say that she used to do crack but has not done this in a long time. Denies EtOH abuse. [facility] Medical History ADD (attention deficit disorder) Bipolar 1 disorder Depression Substance abuse Allergy/AdvReac Type Severity Reaction Status Date / Time divalproex sodium Allergy Rash Verified 10/01/21 09:45 [From Depakote] fluphenazine enanthate Allergy Other Verified 10/01/21 09:45 [From Prolixin] fluphenazine HCl Allergy Other Verified 10/01/21 09:45 [From Prolixin] nalbuphine HCl [From Nubain] Allergy Hives Verified 10/01/21 09:45 nifedipine [From Procardia] Allergy Swelling Verified 10/01/21 09:45 Penicillins Allergy Swelling Verified 10/01/21 09:45 quetiapine fumarate Allergy Other Verified 10/01/21 09:45 [From Seroquel] risperidone [From Risperdal] Allergy Hives Verified 10/01/21 09:45 ziprasidone HCl [From Geodon] Allergy Other Verified 10/01/21 09:45 ziprasidone mesylate Allergy Other Verified 10/01/21 09:45 [From Geodon] Social History Smoking Status: Current every day smoker tobacco type: cigarettes ROS ROS ED Constitutional Constitutional ED: Denies chills or fever(s) Eyes Eyes: Denies blurry vision ENT ENT ED: Denies rhinorrhea or sore throat Cardiovascular Cardiovascular: Denies chest pain or palpitations Respiratory/Chest Respiratory/Chest: Denies cough or dyspnea Gastrointestinal Gastrointestinal: Denies abdominal pain, nausea or vomiting Genitourinary Genitourinary ED: Denies dysuria or urinary frequency Musculoskeletal Musculoskeletal: Denies arthralgias or myalgias Integumentary Denies abscess or rash Neurologic Neurologic: Denies headache(s) or weakness Psychiatric Psychiatric: Reports anxiety; Denies depression EXAM Physical Exam Const Vital Signs: 10/01/21 09:14 Temperature 96.1 F L Temperature Source Temporal Pulse Rate 113 H Respiratory Rate 16 Blood Pressure 157/120 H Blood Pressure Mean 132 Pulse Ox 96 Oxygen Delivery Method Room Air Positive well nourished, obese and unkempt General Appearance ED: unkempt and NAD; Negative for pallor Nutritional Appearance: obese HEENT Reports moist mucous membranes atraumatic Eyes PERRL and EOMs intact bilaterally Resp normal respiratory effort and clear to auscultation bilaterally Cardio regular rate Rate: tachycardic GI soft to palpation, non-tender and non-distended Neuro oriented x3 and CN's II-XII intact bilaterally Sensorium / Orientation: alert Psych Appearance: unkempt Attitude: agitated Mood & Affect: anxious Skin General Skin Exam: Negative for jaundice or pallor Lesions: no lesions Rashes: no rashes MDM MDM MDM Narrative Medical decision making narrative: Patient seen and evaluated for methamphetamine abuse. She is concerned she might of had opioids in her last use of methamphetamines and states she took 2 hotlines. This was 2 days ago. Patient is not a chronic opioid user and is unlikely she is withdrawing from opioids. She does also believe she could be coming down from methamphetamine. She did request a couple of Ativan doses. I recommended we start with Vistaril. Blood work was obtained and initially she has a CBC which shows a leukocytosis of 14.9. Hemoglobin stable 11.7. Platelets normal at 391. I went to reevaluate the patient at approximately 10 AM and the patient had eloped from the department. I did review her CMP and her renal function electrolytes appear to be unremarkable. Potassium is 3.4. LFTs are normal. EtOH negative. hCG negative. Impression: 1. Methamphetamine abuse Lab Data Labs: Laboratory Results - last 24 hr 10/01/21 10/01/21 10/01/21 09:35 09:35 09:35 WBC 14.9 H RBC 4.91 Hgb 11.7 L Hct 37.1 MCV 75.6 L MCH 23.8 L MCHC 31.5 L RDW Std Deviation 42.6 RDW Coeff of Deonte 15.7 H Plt Count 391 MPV 10.6 Immature Gran % (Auto) 0.300 Neut % (Auto) 71.4 H Lymph % (Auto) 18.2 L Calloway % (Auto) 7.3 Eos % (Auto) 2.3 Baso % (Auto) 0.5 Absolute Neuts (auto) 10.7 H Absolute Lymphs (auto) 2.71 Nucleated RBC % 0 Sodium 135 L Potassium 3.4 L Chloride 102 Carbon Dioxide 27.0 Anion Gap 6 BUN 13 Creatinine 0.70 Estim Creat Clear Calc 104.93 Est GFR (MDRD) Af Amer 119 Est GFR (MDRD) Non-Af 98 BUN/Creatinine Ratio 18.5 Glucose 93 Calcium 9.2 Total Bilirubin 0.70 AST 24 ALT 31 Alkaline Phosphatase 105 Total Protein 7.6 Albumin 3.6 Globulin 4.0 Albumin/Globulin Ratio 0.9 Serum , Qual Ethyl Alcohol < 3.0 10/01/21 09:35 WBC RBC Hgb Hct MCV MCH MCHC RDW Std Deviation RDW Coeff of Deonte Plt Count MPV Immature Gran % (Auto) Neut % (Auto) Lymph % (Auto) Calloway % (Auto) Eos % (Auto) Baso % (Auto) Absolute Neuts (auto) Absolute Lymphs (auto) Nucleated RBC % Sodium Potassium Chloride Carbon Dioxide Anion Gap BUN Creatinine Estim Creat Clear Calc Est GFR (MDRD) Af Amer Est GFR (MDRD) Non-Af BUN/Creatinine Ratio Glucose Calcium Total Bilirubin AST ALT Alkaline Phosphatase Total Protein Albumin Globulin Albumin/Globulin Ratio Serum , Qual NEGATIVE Ethyl Alcohol Discharge Plan Triage Chief Complaint: Substance Abuse ED Provider: Juarez Kinney Dx/Rx/DC Orders Primary Care Provider: Yosvany Cox NP Referrals: Yosvany Cox LEVEL GLASS FORMING MACHINE OPERATOR, LEVEL GLASS FORMING MACHINE OPERATOR-C [Primary Care Provider] - Disposition Disposition: Elopement Discharge Date/Time: 10/01/21 10:05
--- NOTE | 2021-10-01 10:00 | ED.RN ---
PER GRAPHICS COORDINATOR THE PATIENT LEFT THE EMERGENCY DEPARTMENT STATING THAT WE COULD NOT HELP HER WITH TREATMENT BASED ON THE DRUGS SHE TAKES. THIS RN WAS NOTIFIED BY REGISTRATION. I WENT INTO THE ROOM TO CHECK ON PATIENT AND THE ROOM WAS EMPTY. NOTIFIED THAT PATIENT LEFT. NO FURTHER INSTRUCTIONS GIVEN. NO IV PLACED IN PATIENT.
[2021-10-01 10:04] LABS: ALB/GLOB Ratio 0.9 RATIO (0.9-2.4); AST(SGOT) 24 U/L (15-37); Alanine Aminotransfer ALT/SGPT 31 U/L (13-56); Albumin, Serum 3.6 g/dL (3.2-5.0); Alkaline Phosphatase 105 U/L (45-117); Anion Gap 6 (5-15); BUN 13 mg/dL (7-18); BUN/Creat Ratio 18.5 RATIO (10-20); Calcium,Total 9.2 mg/dL (8.5-10.1); Chloride 102 mmol/L (98-107); EST Glomerular Filtration Rate 98 mL/min (>60); Est Glom Filt Rate - Afr Amer 119 mL/min (>60); Estimated Creatinine Clearance 104.93 ml/min; Glucose 93 mg/dL (74-106); Potassium 3.4 mmol/L (3.5-5.1); Protein, Total 7.6 g/dL (6.4-8.2); Sodium Level 135 mmol/L (136-145)
[2021-10-01 10:14] LABS: Internal QC Validated? YES +Cl - CLEAR BKGD; Pregnancy, Serum, hCG Quali. NEGATIVE Negative
[2021-10-01 10:16] LABS: Alcohol, Blood (Medical)-Serum < 3.0 mg/dL
--- NOTE | 2021-10-01 10:25 | CM.ED ---
Per RN patient left [facility]
== END 2021-10-01 10:05 | disposition left against medical advice (07) ==
PROVIDERS: Emergency Provider Student in an Organized Health Care Education/Training Program; PCP Nurse Practitioner Primary Care; Visit Provider Student in an Organized Health Care Education/Training Program
DX: F15.10 Other stimulant abuse, uncomplicated (principal); F17.210 Nicotine dependence, cigarettes, uncomplicated
CPT/HCPCS: 80053; 82077; 84703; 85025; 99282

== ENCOUNTER 2021-10-01 18:58 | Emergency (ER) | payer MEDICARE, MEDICAID, SELFPAY ==
[2021-10-01 18:59] VITALS: BP 142/87; PULSE 85; RESP 16; TEMP 36.2; O2SAT 96; BMI 32.4
--- NOTE | 2021-10-01 19:09 | ED.RN ---
PT WALKED OUT OF DEPARTMENT. ASKED WHERE SHE WAS GOING AND PT REFUSED TO ANSWER. WHEN ASKED IF SHE WAS LEAVING SHE STATED YES. REMINDED HER IF SHE LEAVES AGAIN IT COULD AFFECT HER POTENTIAL DETOX OPPORTUNITIES. SHE STATED BYE
== END 2021-10-01 19:09 | disposition left against medical advice (07) ==
LOC: ED 19:12
PROVIDERS: PCP Nurse Practitioner Primary Care
DX: F19.10 Other psychoactive substance abuse, uncomplicated (principal)

== ENCOUNTER 2021-11-02 14:04 | Emergency (ER) | payer MEDICARE, MEDICAID, SELFPAY ==
[2021-11-02 14:05] VITALS: BP 169/108; PULSE 108; RESP 20; TEMP 36.5; O2SAT 100; BMI 27.4
--- NOTE | 2021-11-02 14:16 | CM.ED ---
Addendum entered by Karis Lopez 11/02/21 14:19: Jennifer confirmed that patient is not suicidal but delusional. Plan: Inpatient psych Karis ELLIS Original Note: PAVITHRA Note PAVITHRA was advised by staff field engineer that the senior care had dropped off patient to triage with a pink slip. Patient, per staff is delusional but not suicidal. PAVITHRA called Jennifer at Crisis. She said that she saw patient in the senior care this morning and assessed the patient. Her plan for patient was inpatient psych or [facility]. Jennifer said that the senior care was advised to contact her regarding the plan as they were taking patient to see the Animal Control Licensing Worker. Jennifer said that she has completed the assessment. PAVITHRA updated fuller brush worker Poppy. Karis ELLIS
[2021-11-02 14:33] LABS: Absolute Lymphocyte Count 3.12 X10^3/uL (0.83-4.51); Absolute Neutrophil Count 7.7 X10^3/uL (2.0-7.7); Basophil# 0.05 X10^3/uL; Basophil% 0.4 % (0-1); Eosinophil# 0.21 X10^3/uL; Eosinophils% 1.8 % (0-5); Hematocrit 51.5 % (37-47); Hemoglobin 15.7 g/dL (12.0-15.0); Lymphocyte # 3.12 X10^3/ul (0.83-4.51); Lymphocyte % 26.4 % (19-41); Mean Corp Hgb Conc 30.5 g/dL (32-36); Mean Corpuscular Hgb 23.9 pg (27.0-32.0); Mean Corpuscular Volume 78.4 fL (81-99); Mean Platelet Vol. 11.1 fl (6.2-12.0); Monocyte# 0.67 X10^3/uL; Monocyte% 5.7 % (0-10); NRBC Flagged by Analyzer 0 % (0-5); Neutrophil # 7.74 X10^3/uL (2.7-7.7); Neutrophil % 65.4 % (47-70); Platelet Count 415 K/mm3 (150-450); RBC Distribution Width CV 16.8 % (11.6-14.6); RBC Distribution Width SD 43.9 fl (35.1-43.9); Red Blood Count 6.57 M/mm3 (4.2-5.4); White Blood Count 11.8 K/mm3 (4.4-11.0)
[2021-11-02 14:49] LABS: Anion Gap 5 (5-15); BUN 11 mg/dL (7-18); BUN/Creat Ratio 16.4 RATIO (10-20); Calcium,Total 10.1 mg/dL (8.5-10.1); Chloride 106 mmol/L (98-107); Creatinine, Serum 0.67 mg/dL (0.55-1.02); EST Glomerular Filtration Rate 103 mL/min (>60); Est Glom Filt Rate - Afr Amer 125 mL/min (>60); Estimated Creatinine Clearance 97.35 ml/min; Glucose 110 mg/dL (74-106); Potassium 4.1 mmol/L (3.5-5.1); Sodium Level 139 mmol/L (136-145)
[2021-11-02 14:51] LABS: Internal QC Validated? YES +Cl - CLEAR BKGD; Pregnancy, Serum, hCG Quali. NEGATIVE Negative
[2021-11-02 14:53] LABS: Alcohol, Blood (Medical)-Serum < 3.0 mg/dL
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
[2021-11-02 15:54] LABS: Amphetamine Urine VISTA NEGATIVE (<1000 ng/mL); Barbiturate Urine VISTA NEGATIVE (< 200 ng/mL); Benzodiazepine Urine VISTA NEGATIVE (< 200 ng/mL); Cocaine Urine VISTA NEGATIVE (< 300 ng/mL); Ecstacy Urine VISTA NEGATIVE (< 500 ng/mL); Methadone Urine VISTA NEGATIVE (< 300 ng/mL); PCP Urine VISTA NEGATIVE (< 25 ng/mL); THC Urine VISTA NEGATIVE (< 50 ng/mL); Vista UDS pH Range 6
[2021-11-02 16:07] VITALS: RESP 16
--- NOTE | 2021-11-02 17:06 | CM.ED ---
SW Note Pavithra faxed referral to [facility] for patient. PAVITHRA called [facility] and spoke to Ainsley. She is reviewing it currently. PAVITHRA updated carry in worker, Jennifer Esteves Plan: Inpatient psych [facility] ELL[facility]
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
[2021-11-02 19:19] VITALS: BP 147/96; PULSE 100; RESP 18; TEMP 36.1; O2SAT 95
[2021-11-02] MEDS: Donepezil HCl 10 MG Tablet PO (21:26)
[2021-11-02] MEDS: busPIRone 5 MG Tablet 20 MG PO (21:26)
[2021-11-02] MEDS: levETIRAcetam 750 MG Tablet 1500 MG PO (21:26)
[2021-11-02] MEDS: LORazepam 1 MG Tablet PO (21:26)
[2021-11-02] MEDS: metFORMIN HCl 1,000 MG Tablet 1000 MG PO (21:26)
[2021-11-02] MEDS: ARIPiprazole 5 MG Tablet 15 MG PO (21:26)
== END 2021-11-02 21:43 ==
PROVIDERS: Emergency Provider Emergency Medicine; PCP Nurse Practitioner Primary Care; Visit Provider Emergency Medicine
DX: F23 Brief psychotic disorder (principal); F17.210 Nicotine dependence, cigarettes, uncomplicated; F32.A Depression, unspecified; Z79.84 Long term (current) use of oral hypoglycemic drugs; Z79.899 Other long term (current) drug therapy
CPT/HCPCS: 80048; 80307; 82077; 84703; 85025; 87811; 99285

== ENCOUNTER 2021-12-10 05:12 | Emergency (ER) | payer MEDICARE, MEDICAID, SELFPAY ==
[2021-12-10] VITALS (17 sets, daily range): BP systolic 126–136; BP diastolic 72–88; PULSE 76–98; RESP 14–20; TEMP 37.5; O2SAT 97–99; BMI 33.0
--- NOTE | 2021-12-10 05:33 | CT_ITS ---
STUDY: CT BRAIN WITHOUT CONTRAST REASON FOR EXAM: Female, 41 years old. AMS RADIATION DOSAGE (If Supplied By Facility): CTDIvol = ( 44.99 ) mGy, DLP = ( 880.47 ) mGycm TECHNIQUE: Transaxial CT imaging of the brain was performed without administration of intravenous contrast material. Individualized dose optimization techniques were used for this CT. COMPARISON: 09/11/2021 FINDINGS: Left lateral periorbital soft tissue contusion. Unremarkable orbits. Normal calvarium. Normal size ventricles and extra-axial spaces for the patient''s age. Normal white matter tracts of the cerebral hemispheres. Normal basal ganglia and thalami. Normal brainstem. Normal cerebellum. There is no intracranial hemorrhage. There are no findings of an acute ischemic infarction. Normal visualized paranasal sinuses. CT/Brain/Head without Contrast IMPRESSION: No acute abnormal intracranial finding. Electronically Signed: Santo Cox MD at 6:10 EDT ,
[2021-12-10 06:00] LABS: Mucous, Urine 0 SEEN /hpf (<or=2+); Red Blood Cells-Urine 0 SEEN /hpf (0-5)
[2021-12-10 06:01] LABS: Amphetamine Urine VISTA NEGATIVE (<1000 ng/mL); Barbiturate Urine VISTA NEGATIVE (< 200 ng/mL); Benzodiazepine Urine VISTA NEGATIVE (< 200 ng/mL); Cocaine Urine VISTA NEGATIVE (< 300 ng/mL); Ecstacy Urine VISTA NEGATIVE (< 500 ng/mL); Methadone Urine VISTA NEGATIVE (< 300 ng/mL); PCP Urine VISTA NEGATIVE (< 25 ng/mL); THC Urine VISTA NEGATIVE (< 50 ng/mL); Vista UDS pH Range 6
[2021-12-10 06:01] LABS: Absolute Lymphocyte Count 1.89 X10^3/uL (0.83-4.51); Absolute Neutrophil Count 10.2 X10^3/uL (2.0-7.7); Basophil# 0.05 X10^3/uL; Basophil% 0.4 % (0-1); Eosinophil# 0.17 X10^3/uL; Eosinophils% 1.3 % (0-5); Hematocrit 34.2 % (37-47); Hemoglobin 10.6 g/dL (12.0-15.0); Lymphocyte # 1.89 X10^3/ul (0.83-4.51); Lymphocyte % 14.4 % (19-41); Mean Corpuscular Volume 77.6 fL (81-99); Mean Platelet Vol. 10.3 fl (6.2-12.0); Monocyte# 0.78 X10^3/uL; Monocyte% 5.9 % (0-10); NRBC Flagged by Analyzer 0 % (0-5); Neutrophil # 10.22 X10^3/uL (2.7-7.7); Neutrophil % 77.5 % (47-70); Platelet Count 335 K/mm3 (150-450); RBC Distribution Width CV 16.7 % (11.6-14.6); RBC Distribution Width SD 47.1 fl (35.1-43.9); Red Blood Count 4.41 M/mm3 (4.2-5.4); White Blood Count 13.2 K/mm3 (4.4-11.0)
[2021-12-10 06:02] LABS: Color, Urine Yellow (Yellow); Glucose, Dipstick Normal (Normal); Ketone-Dipstick Negative (Negative); Leukocyte Esterase-Dipstick 25 /ul (Negative); Nitrite-Dipstick Negative (Negative); Occult Blood-Urine Negative /ul (Negative); Protein-Dipstick Negative (Negative); Specific Gravity, Urine 1.015 (1.002-1.030); Urine Bilirubin Dipstick Negative (Negative); Urine Clarity Clear (Clear); Urine Urobilinogen Normal (Normal)
[2021-12-10 06:15] LABS: Bacteria RARE /hpf (None Seen); Squamous Epithelial Cells - UA 0-5 SEEN /hpf (5-10); White Blood Cells 0-5 SEEN /hpf (0-5)
[2021-12-10 06:20] LABS: ALB/GLOB Ratio 0.9 RATIO (0.9-2.4); AST(SGOT) 32 U/L (15-37); Alanine Aminotransfer ALT/SGPT 28 U/L (13-56); Albumin, Serum 3.6 g/dL (3.2-5.0); Alkaline Phosphatase 87 U/L (45-117); Anion Gap 7 (5-15); BUN 9 mg/dL (7-18); BUN/Creat Ratio 15.9 RATIO (10-20); Calcium,Total 9.2 mg/dL (8.5-10.1); Chloride 103 mmol/L (98-107); Creatinine, Serum 0.57 mg/dL (0.55-1.02); EST Glomerular Filtration Rate 126 mL/min (>60); Est Glom Filt Rate - Afr Amer 152 mL/min (>60); Estimated Creatinine Clearance 114.42 ml/min; Globulin 3.8 g/dL (2.2-4.2); Glucose 108 mg/dL (74-106); Potassium 3.5 mmol/L (3.5-5.1); Protein, Total 7.4 g/dL (6.4-8.2); Sodium Level 135 mmol/L (136-145)
--- NOTE | 2021-12-10 06:27 | EDS_ITS ---
HPI HPI - Psych History of Present Illness Chief Complaint: Mental Health Narrative Narrative: 41-year-old female presenting with altered mental status. Apparently she was found at the gas station and it was reported by EMS that she was dropped off there by her father who took her to a court appearance and then told her she needed to find her own way home. The patient is not a very good informant and is very difficult to get information from. She does not know the date, the month, the year. She does not know if she has been taking her medications. [facility] Medical History ADD (attention deficit disorder) Bipolar 1 disorder Depression Substance abuse Home Medications aripiprazole 30 mg tablet (Abilify) 15 mg PO BID 11/02/21 [History Last Taken Unknown] aripiprazole lauroxil 1,064 mg/3.9 mL suspension,ext.rel IM syringe (Aristada) mg IM QMONTH 11/02/21 [History Last Taken Unknown] buspirone 10 mg tablet 20 mg PO TID 11/02/21 [History Last Taken Unknown] donepezil 10 mg tablet 10 mg PO QHS 11/02/21 [History Last Taken Unknown] levetiracetam 500 mg tablet 1,500 mg PO QHS 11/02/21 [History Last Taken Unknown] levetiracetam 500 mg tablet 500 mg PO 0900 11/02/21 [History Last Taken Unknown] lorazepam 1 mg tablet 1 mg PO BID PRN Anxiety 11/02/21 [History Last Taken Unknown] loxapine succinate 50 mg capsule 50 mg PO 0900 11/02/21 [History Last Taken Unknown] loxapine succinate 50 mg capsule 200 mg PO QHS 11/02/21 [History Last Taken Unknown] metformin 500 mg tablet 1,000 mg PO BID 11/02/21 [History Last Taken Unknown] Allergy/AdvReac Type Severity Reaction Status Date / Time divalproex sodium Allergy Rash Verified 11/02/21 14:05 [From Depakote] fluphenazine enanthate Allergy Other Verified 11/02/21 14:05 [From Prolixin] fluphenazine HCl Allergy Other Verified 11/02/21 14:05 [From Prolixin] nalbuphine HCl [From Nubain] Allergy Hives Verified 11/02/21 14:05 nifedipine [From Procardia] Allergy Swelling Verified 11/02/21 14:05 Penicillins Allergy Swelling Verified 11/02/21 14:05 quetiapine fumarate Allergy Other Verified 11/02/21 14:05 [From Seroquel] risperidone [From Risperdal] Allergy Hives Verified 11/02/21 14:05 ziprasidone HCl [From Geodon] Allergy Other Verified 11/02/21 14:05 ziprasidone mesylate Allergy Other Verified 11/02/21 14:05 [From Geodon] Social History household members: significant other Smoking Status: Current every day smoker tobacco type: cigarettes alcohol intake: current substance use type: other ROS ROS ED Review of Systems ROS Unobtainable: due to mental status EXAM Physical Exam Const Vital Signs: 12/10/21 05:14 12/10/21 06:13 12/10/21 07:05 Temperature 99.5 F H Temperature Source Oral Pulse Rate 98 Respiratory Rate 20 H 15 18 Blood Pressure 136/88 H Blood Pressure Mean 104 Pulse Ox 99 Oxygen Delivery Method Room Air Room Air Positive obese and unkempt General Appearance ED: unkempt and NAD Nutritional Appearance: obese HEENT Reports moist mucous membranes HEENT Narrative: Lower lip appears to be sunburned and swollen. Eyes PERRL and EOMs intact bilaterally Resp normal respiratory effort and clear to auscultation bilaterally Auscultation: Negative for rales, rhonchi or wheezes Cardio Rate: regular rate Rhythm: regular rhythm GI non-tender Neuro CN's II-XII intact bilaterally Sensorium / Orientation: alert Psych Appearance: unkempt, disheveled and bizarre Attitude: calm Activity / Motor Behavior: disorganized Speech: delayed Thought Process: disorganized and illogical Thought Content: No suicidality and No homicidality Attention / Concentration: attention grossly impaired and concentration grossly impaired Memory / Cognition: memory grossly impaired Insight: poor Judgement: poor Skin Skin Narrative: Bilateral hands and shoulders appear to be sunburned. The bilateral hands appear to be a little swollen. They are not tender. General Skin Exam: Negative for jaundice MDM MDM MDM Narrative Medical decision making narrative: Patient presenting with odd behavior. She was found at the gas station after they called saying she was acting bizarrely. Apparently she was dropped off after court although I cannot confirm this. When I try to talk to the patient she tells me that some man came to her house and did the 777 sign and then turns to her right and almost plays [email or web address]. She is hard to redirect and her speech is jumbled. She cannot tell me what day, month, year it is. Patient CBC shows a slight leukocytosis of 13.2. Her hemoglobin is 10.6 and seems to go up and down over time. No history of GI bleeding. This appears to be at a stable baseline. Urinalysis negative for infection. COVID testing is negative. CT brain shows no acute intercranial process. Patient's urine drug screen is negative and the patient is supposed to be on Ativan so I presume she is not getting any of this. I did send for a Keppra level. The pink slip was filled out as I do not think the patient is able to take care of her self and it sounds as if she was left at a gas station to fend for herself. She will need to speak with social work. Signed out to incoming ED physician for monitoring. 1. Acute delirium Lab Data Attestation: I reviewed the patient's lab results. Labs: Laboratory Results - last 24 hr 12/10/21 12/10/21 12/10/21 05:36 05:36 05:45 WBC 13.2 H RBC 4.41 Hgb 10.6 L Hct 34.2 L MCV 77.6 L MCH 24.0 L MCHC 31.0 L RDW Std Deviation 47.1 H RDW Coeff of Deonte 16.7 H Plt Count 335 MPV 10.3 Immature Gran % (Auto) 0.500 Neut % (Auto) 77.5 H Lymph % (Auto) 14.4 L Robeson % (Auto) 5.9 Eos % (Auto) 1.3 Baso % (Auto) 0.4 Absolute Neuts (auto) 10.2 H Absolute Lymphs (auto) 1.89 Nucleated RBC % 0 Sodium Potassium Chloride Carbon Dioxide Anion Gap BUN Creatinine Estim Creat Clear Calc Est GFR (MDRD) Af Amer Est GFR (MDRD) Non-Af BUN/Creatinine Ratio Glucose Calcium Total Bilirubin AST ALT Alkaline Phosphatase Total Protein Albumin Globulin Albumin/Globulin Ratio Serum , Qual Urine Color Yellow Urine Clarity Clear Urine pH 6.0 Ur Specific [place] 1.015 Urine Protein Negative Urine Glucose (UA) Normal Urine Ketones Negative Urine Occult Blood Negative Urine Nitrite Negative Urine Bilirubin Negative Urine Urobilinogen Normal Ur Leukocyte Esterase 25 H Urine RBC 0 SEEN Urine WBC 0-5 SEEN Ur Squamous Epith Cells 0-5 SEEN Urine Bacteria RARE Urine Mucus 0 SEEN Urine Opiates Screen NEGATIVE Urine Methadone Screen NEGATIVE Ur Barbiturates Screen NEGATIVE Ur Phencyclidine Scrn NEGATIVE Ur Amphetamines Screen NEGATIVE MDMA (Ecstasy) Screen NEGATIVE U Benzodiazepines Scrn NEGATIVE Urine Cocaine Screen NEGATIVE U Cannabinoids Screen NEGATIVE Ur Drug Screen Comment Ethyl Alcohol 12/10/21 12/10/21 12/10/21 05:45 05:45 05:45 WBC RBC Hgb Hct MCV MCH MCHC RDW Std Deviation RDW Coeff of Deonte Plt Count MPV Immature Gran % (Auto) Neut % (Auto) Lymph % (Auto) Robeson % (Auto) Eos % (Auto) Baso % (Auto) Absolute Neuts (auto) Absolute Lymphs (auto) Nucleated RBC % Sodium 135 L Potassium 3.5 Chloride 103 Carbon Dioxide 25.0 Anion Gap 7 BUN 9 Creatinine 0.57 Estim Creat Clear Calc 114.42 Est GFR (MDRD) Af Amer 152 Est GFR (MDRD) Non-Af 126 BUN/Creatinine Ratio 15.9 Glucose 108 H Calcium 9.2 Total Bilirubin 0.60 AST 32 ALT 28 Alkaline Phosphatase 87 Total Protein 7.4 Albumin 3.6 Globulin 3.8 Albumin/Globulin Ratio 0.9 Serum , Qual NEGATIVE Urine Color Urine Clarity Urine pH Ur Specific [place] Urine Protein Urine Glucose (UA) Urine Ketones Urine Occult Blood Urine Nitrite Urine Bilirubin Urine Urobilinogen Ur Leukocyte Esterase Urine RBC Urine WBC Ur Squamous Epith Cells Urine Bacteria Urine Mucus Urine Opiates Screen Urine Methadone Screen Ur Barbiturates Screen Ur Phencyclidine Scrn Ur Amphetamines Screen MDMA (Ecstasy) Screen U Benzodiazepines Scrn Urine Cocaine Screen U Cannabinoids Screen Ur Drug Screen Comment Ethyl Alcohol 6.0 Radiography Diagnostic Testing: Clinical Impression(s) from Imaging Studies Brain CT 12/10/21 05:33 IMPRESSION: No acute abnormal intracranial finding. Electronically Signed: Santo Cox MD at 6:10 EDT , Discharge Plan Triage Chief Complaint: Mental Health ED Provider: Juarez Kinney Dx/Rx/DC Orders Prescriptions: No Action metformin 500 mg Tablet 1,000 mg PO BID levetiracetam 500 mg tablet 500 mg PO 0900 Label Comments: take 1 tablet by mouth once daily AT 9 AM and 3 tablets at bedtime levetiracetam 500 mg Tablet 1,500 mg PO QHS donepezil 10 mg tablet 10 mg PO QHS buspirone 10 mg tablet 20 mg PO TID Label Comments: take 2 tablets by mouth three times a day lorazepam 1 mg Tablet 1 mg PO BID PRN (Reason: Anxiety) loxapine succinate 50 mg capsule 50 mg PO 0900 Label Comments: take 1 tablet by mouth AT 9AM and 4 tablets at bedtime loxapine succinate 50 mg Capsule 200 mg PO QHS aripiprazole [Abilify] 30 mg tablet 15 mg PO BID Label Comments: take 1/2 tablet by mouth twice a day Aristada 1,064 mg/3.9 mL suspension,extended rel syring IM QMONTH Rx Instructions: receives every 2 months, due 12/19 Primary Care Provider: Yosvany Cox NP Referrals: Yosvany Cox [employer], [employer] [Primary Care Provider] -
[2021-12-10 06:32] LABS: Internal QC Validated? YES +Cl - CLEAR BKGD; Pregnancy, Serum, hCG Quali. NEGATIVE Negative
--- NOTE | 2021-12-10 07:50 | NURSING ---
CALLED [facility]
--- NOTE | 2021-12-10 07:55 | NURSING ---
FAXED CHART TO [facility].
--- NOTE | 2021-12-10 10:00 | NURSING ---
CALLED [facility], KRYSTA WILL BE HERE SOON SHE CAN
--- NOTE | 2021-12-10 10:39 | NURSING ---
KRYSTA, [facility], HERE
--- NOTE | 2021-12-10 11:42 | CM.ED ---
Social Work Note SW spoke with Leah from [facility]. Leah states she evaluated pt and plan is for inpatient psych hospitalization. Leah states pt was just at [facility] last month, may see if they will do a readmission for pt. Leah states that they are also trying to get pt linked up with Case Management services. Jennifer Chand LEGAL STENOGRAPHER, CARE PROFESSIONAL
--- NOTE | 2021-12-10 13:27 | CM.ED ---
Social Work Note SW spoke with Leah at [facility]. Leah states assessment is complete and referral has been sent to [facility]. Jennifer Chand FIELD PLACEMENT DIRECTOR, CLOTH CLASSER
--- NOTE | 2021-12-10 14:59 | NURSING ---
KRYSTA, [facility], SENT REFERRAL TO [facility]
--- NOTE | 2021-12-10 21:05 | CM.ED ---
Social Work Note surveyor instrument assistant updated this worker that he is looking at pt's medications list and it was prescribed through a physician and pt was just at a week ago. PAVITHRA placed a call to [facility] and spoke with Delaney. PAVITHRA updated Delaney that pt just got medications prescribed through a week ago, may be beneficial to try and get pt back to . Delaney states that pt is currently pending at [facility]. Jennifer Chand LAUNDRY ATTENDANT, DOCUMENT CONTROL COORDINATOR
[2021-12-10] MEDS: Benztropine 2 MG Tablet 1 MG PO (22:25)
[2021-12-10] MEDS: metFORMIN HCl 500 MG Tablet PO (22:26)
[2021-12-10] MEDS: Escitalopram Oxalate 10 MG Tablet 15 MG PO (22:27)
[2021-12-10] MEDS: Lithium Carbonate 300mg Capsule 900 MG PO (22:28)
[2021-12-10] MEDS: ChlorproMAZINE 25 MG Tablet 400 MG PO (22:30)
[2021-12-10] MEDS: clonazePAM 1 MG Tablet 2 MG PO (22:41)
--- NOTE | 2021-12-10 23:19 | ED.RN ---
patient [facility], attempted [facility] no beds, pending at [facility]
[2021-12-11] VITALS (9 sets, daily range): BP systolic 114–117; BP diastolic 78–81; PULSE 18–89; RESP 14–18; O2SAT 98
--- NOTE | 2021-12-11 06:46 | NURSING ---
CACHORRO FROM [facility] CALLED SAID [facility] ACCEPTED. WILL CALL AT SHIFT CHANGE FOR BED AND REPORT INFO. APPROX 8AM.
--- NOTE | 2021-12-11 09:19 | ED.RN ---
PT OUT IN HALLWAY WITH GOWN OPEN IN THE FRONT EXPOSING HERSELF. PT PROVIDED WITH ANOTHER GOWN AND ASSISTED TO COVER UP
--- NOTE | 2021-12-11 09:24 | NURSING ---
CALLED [facility] BACK AROUND 9AM. THEY NEEDED A NEW PINK SLIP (ADDRESSED TO THEM) AND AN UPDATED INSURANCE. FAXED THAT ALL OVER 924. THEY SAID WILL RECIEVE BED/REPORT INFO SHORTLY AFTER.
[2021-12-11] MEDS: Benztropine 2 MG Tablet 1 MG PO (10:18)
[2021-12-11] MEDS: metFORMIN HCl 500 MG Tablet PO (10:19)
[2021-12-11] MEDS: Lithium Carbonate 300mg Capsule 600 MG PO (10:19)
--- NOTE | 2021-12-11 10:29 | ED.RN ---
pharmacy called and will be slight delay in thorazine d/t packaging. pt updated
[2021-12-11] MEDS: ChlorproMAZINE 25 MG Tablet 400 MG PO (10:50)
--- NOTE | 2021-12-11 15:18 | CM.ED ---
PAVITHRA called stevedoring superintendent Ele at [facility]. She said that she had just called staff at [facility] and provided accepting information. Ele said that patient was going room 3310. She advised that the patient would need to go through the ED at [facility]. PAVITHRA updated community health representative Yessi that patient needed to go through the ED. PAVITHRA completed transfer form for patient. Yessi, community health representative, advised that the accepting MD was Bolivar. Yessi will arrange transportation for patient. PAVITHRA called Leah at [facility] and left voice mail advising patient was accepted at [facility] with accepting MD was Bolivar. Karis ELLIS
[2021-12-17 12:04] LABS: KEPPRA (LEVETIRACETAM) <1.0 ug/mL (10.0-40.0)
== END 2021-12-11 12:23 ==
PROVIDERS: Emergency Provider Student in an Organized Health Care Education/Training Program; PCP Nurse Practitioner Primary Care; Visit Provider Student in an Organized Health Care Education/Training Program
DX: R41.82 Altered mental status, unspecified (principal); F17.210 Nicotine dependence, cigarettes, uncomplicated; F98.8 Other specified behavioral and emotional disorders with onset usually occurring in childhood and adolescence; F32.A Depression, unspecified; Z20.822 Contact with and (suspected) exposure to COVID-19
CPT/HCPCS: 36415; 70450; 80053; 80177; 80178; 80307; 81001; 82077; 84703; 85025; 87811; 99285

== ENCOUNTER 2022-06-12 09:19 | Emergency (ER) | payer MEDICARE, MEDICAID, SELFPAY ==
[2022-06-12 09:19] VITALS: BP 132/71; PULSE 78; RESP 14; TEMP 36.2; O2SAT 98; BMI 34.3
--- NOTE | 2022-06-12 09:31 | EDS_ITS ---
HPI History of Present Illness Chief Complaint: Dental Detail of Chief Complaint: Dental pain Informant: patient Onset/Context/Timing Onset: Days (1 to 2 days ago) Context: Sudden Onset Timing: Continuous Quality: Pain Location: Tooth #18 Current Severity: Mild Maximum Severity: Moderate Worsened by: Nothing Relieved by: NSAIDs, Topicals and - (Nothing) Associated Symptoms Assocated Symptom - Dental: Negative for fever, jaw swelling, face swelling, cold sensitivity or hot sensitivity Narrative Narrative: Patient is a 42-year-old woman who presents with dental pain. She states the tooth broke 2 to 3 months ago. She is unable to see a dentist until [facility]. She has an appointment with dentist in [place]. She denies fever, chills night sweats. She denies difficulty opening or closing her mouth completely. She denies change in voice. She denies drooling. There is no history rheumatic fever, heart murmur, mitral valve prolapse or being immune suppressed. She does have allergy to penicillin. She reports swelling. She denies neck pain or neck stiffness. Prior similar symptoms: Yes Recent Illness/Hospitalization: No PFSH PFSH Medical History ADD (attention deficit disorder) Bipolar 1 disorder Depression Substance abuse Home Medications metformin 500 mg tablet 500 mg PO BID 11/02/21 [History Last Taken Unknown] benztropine 1 mg tablet 1 tab PO BID 12/10/21 [History Last Taken Unknown] chlorpromazine 200 mg tablet 400 tab PO BID 12/10/21 [History Last Taken Unknown] clonazepam 2 mg tablet 1 tab PO QHS 12/10/21 [History Last Taken Unknown] escitalopram oxalate 10 mg tablet 15 tab PO QHS 12/10/21 [History Last Taken Unknown] lithium carbonate 300 mg capsule 600 cap PO DAILY 12/10/21 [History Last Taken Unknown] lithium carbonate 300 mg capsule 900 mg PO QHS 12/10/21 [History Last Taken Unknown] clindamycin HCl 300 mg capsule (Cleocin HCl) 300 mg PO Q6H #28 CAPSULES 06/12/22 [Rx Last Taken Unknown] hydrocodone-acetaminophen 5-325mg 5mg-325mg 1 tab PO Q6H PRN PRN Pain 3 days #10 TABLETS 06/12/22 [Rx Last Taken Unknown] Allergy/AdvReac Type Severity Reaction Status Date / Time divalproex sodium Allergy Rash Verified 11/02/21 14:05 [From Depakote] fluphenazine enanthate Allergy Other Verified 11/02/21 14:05 [From Prolixin] fluphenazine HCl Allergy Other Verified 11/02/21 14:05 [From Prolixin] haloperidol [From Haldol] Allergy Other Verified 06/12/22 09:21 nalbuphine HCl [From Nubain] Allergy Hives Verified 11/02/21 14:05 nifedipine [From Procardia] Allergy Swelling Verified 11/02/21 14:05 Penicillins Allergy Swelling Verified 11/02/21 14:05 quetiapine fumarate Allergy Other Verified 11/02/21 14:05 [From Seroquel] risperidone [From Risperdal] Allergy Hives Verified 11/02/21 14:05 ziprasidone HCl [From Geodon] Allergy Other Verified 11/02/21 14:05 ziprasidone mesylate Allergy Other Verified 11/02/21 14:05 [From Geodon] Social History household members: significant other Smoking Status: Current every day smoker tobacco type: cigarettes alcohol intake: current substance use type: other ROS ROS ED Constitutional Constitutional ED: Denies chills, fever(s), subjective, sweats or weight loss Eyes Eyes: Denies blurry vision or change in vision ENT ENT ED: Reports other Details: Per HPI narrative ; Denies ear pain, rhinorrhea or sore throat Cardiovascular Cardiovascular: Reports other Details: Per HPI narrative Respiratory/Chest Respiratory/Chest: Denies cough, dyspnea or dyspnea on exertion Gastrointestinal Gastrointestinal: Denies nausea or vomiting Musculoskeletal Musculoskeletal: Denies arthralgias, myalgias or neck pain Integumentary Denies abscess, Abrasions or rash Neurologic Neurologic: Denies headache(s), paresthesias or weakness Hematologic/Lymphatic Hematologic/Lymphatic: Denies easy bleeding or easy bruising Allergic/Immunologic Allergic/Immunologic ED: Denies mouth swelling, tongue swelling or urticaria EXAM Physical Exam Const Vital Signs: 06/12/22 09:19 Temperature 97.1 F L Temperature Source Temporal Pulse Rate 78 Respiratory Rate 14 Blood Pressure 132/71 H Blood Pressure Mean 91 Pulse Ox 98 Oxygen Delivery Method Room Air Positive well nourished, well developed, obese and unkempt General Appearance ED: unkempt, well developed and NAD Nutritional Appearance: obese HEENT Reports TM's clear HEENT Narrative: Head is atraumatic normocephalic. There is no evidence of Ludewig's angina. Face and Sinus: sinuses nontender Tympanic Membrane ED: Yes TM's clear Mouth ED: Yes oral and palatal mucosa normal, Yes lips normal, Yes tongue normal, Yes salivary gland normal, No mouth trauma and Yes oral and palatal mucosa abnormal Mouth: oral and palatal mucosa normal, lips normal, tongue normal, salivary gland normal, No mouth trauma and oral and palatal mucosa abnormal Teeth and Gingiva: abnormal tooth and associated gingiva, caries, gingiva abnormal, poor dentition and teeth discoloration Throat: posterior oropharynx normal Eyes PERRL and EOMs intact bilaterally General Eye ED: Negative for pale conjunctiva or scleral icterus Neck no lymphadenopathy, supple and no JVD Neck Narrative: Trachea is midline. There is no inspiratory expiratory stridor General: Negative for normal visual inspection or tenderness Resp normal respiratory effort, no retractions and clear to auscultation bilaterally Cardio regular rate, regular rhythm, S1 normal heart sound, S2 normal heart sound and no murmurs Extremity normal to inspection and no joint enlargement Extremity Narrative: There is no splinter hemorrhages, Jan[place]ay lesions Neuro oriented x3, CN's II-XII intact bilaterally and moves all extremities Sensorium / Orientation: alert Psych mental status grossly normal Appearance: unkempt Skin no rashes or lesions noted and no wounds MDM MDM MDM Narrative Medical decision making narrative: She presents with dental pain. Patient has several dental caries with exposure of dentin and pulp. There is no gingival swelling. There is no evidence of apical abscess or lymphadenopathy. There is no evidence of Ludewig's angina. Patient is diabetic on metformin. She denies symptoms of hyperglycemia i.e. p olyuria, polydipsia nocturia, weight loss or visual change. Laboratory results were not obtained since patient is afebrile. She was treated with antibiotic and pain medicine. Since she is diabetic she was not treated with NSAIDs. She was given dental sheet and instructed to present to [facility] dental clinic for a more urgent follow-up. Prior records were reviewed. There is no evidence of valvular heart disease. Patient is not immune suppressed and on no immunosuppressive agents. Discharge Plan Triage Chief Complaint: Dental ED Provider: Minor Nino Dx/Rx/DC Orders Clinical Impression: Abscess, dental, Dental caries into pulp, Dental caries extending into dentine, Hx of type 2 diabetes mellitus Instructions: ED Dental Abscess Prescriptions: New clindamycin HCl [Cleocin HCl] 300 mg capsule 300 mg PO Q6H Qty: 28 0RF hydrocodone-acetaminophen [hydrocodone-acetaminophen] 5-325 mg tablet 1 tab PO Q6H PRN PRN (Reason: Pain) 3 Days Qty: 10 0RF No Action metformin 500 mg Tablet 500 mg PO BID lithium carbonate 300 mg capsule 600 cap PO DAILY lithium carbonate 300 mg capsule 900 mg PO QHS Label Comments: take 2 capsules by mouth every morning and take 3 capsules by mouth every evening clonazepam 2 mg tablet 1 tab PO QHS Label Comments: take 1 tablet by mouth at bedtime benztropine 1 mg tablet 1 tab PO BID chlorpromazine 200 mg tablet 400 tab PO BID escitalopram oxalate 10 mg tablet 15 tab PO QHS Primary Care Provider: Yosvany Cox NP Referrals: Franca Tapia [Non-Staff] - 3-5 Days Yosvany Cox NP, AIR POLLUTION ANALYST-C [Primary Care Provider] - Disposition Disposition: Home, Self Care
[2022-06-12] MEDS: Clindamycin HCl 150 MG Capsule 300 MG PO (09:47)
[2022-06-12] MEDS: HYDROcodone Bitartrate/Apap 5/325 Tablet PO (09:47)
== END 2022-06-12 09:49 | disposition home or self-care (01) ==
LOC: ED 09:44
PROVIDERS: Emergency Provider Emergency Medicine; PCP Nurse Practitioner Primary Care; Visit Provider Emergency Medicine
DX: K04.7 Periapical abscess without sinus (principal); E11.638 Type 2 diabetes mellitus with other oral complications; Z79.84 Long term (current) use of oral hypoglycemic drugs; F17.210 Nicotine dependence, cigarettes, uncomplicated; K08.89 Other specified disorders of teeth and supporting structures; E66.9 Obesity, unspecified; K02.9 Dental caries, unspecified
CPT/HCPCS: 99283

== ENCOUNTER 2022-11-17 11:40 | Emergency (ER) | payer MEDICARE, MEDICAID, SELFPAY ==
[2022-11-17 11:41] VITALS: BP 165/60; PULSE 74; RESP 18; TEMP 35.8; O2SAT 99; BMI 34.4
--- NOTE | 2022-11-17 12:04 | EX.ED.DYSGE1 ---
HPI History of Present Illness Chief Complaint: Substance Abuse [facility] Medical History ADD (attention deficit disorder) Bipolar 1 disorder Depression Substance abuse Home Medications metformin 500 mg tablet 500 mg PO BID 11/02/21 [History Last Taken Unknown] benztropine 1 mg tablet 1 tab PO BID 12/10/21 [History Last Taken Unknown] chlorpromazine 200 mg tablet 400 tab PO BID 12/10/21 [History Last Taken Unknown] clonazepam 2 mg tablet 1 tab PO QHS 12/10/21 [History Last Taken Unknown] escitalopram oxalate 10 mg tablet 15 tab PO QHS 12/10/21 [History Last Taken Unknown] lithium carbonate 300 mg capsule 600 cap PO DAILY 12/10/21 [History Last Taken Unknown] lithium carbonate 300 mg capsule 900 mg PO QHS 12/10/21 [History Last Taken Unknown] clindamycin HCl 300 mg capsule (Cleocin HCl) 300 mg PO Q6H #28 CAPSULES 06/12/22 [Rx Last Taken Unknown] hydrocodone-acetaminophen 5-325mg 5mg-325mg 1 tab PO Q6H PRN PRN Pain 3 days #10 TABLETS 06/12/22 [Rx Last Taken Unknown] Allergy/AdvReac Type Severity Reaction Status Date / Time divalproex sodium Allergy Rash Verified 11/02/21 14:05 [From Depakote] fluphenazine enanthate Allergy Other Verified 11/02/21 14:05 [From Prolixin] fluphenazine HCl Allergy Other Verified 11/02/21 14:05 [From Prolixin] haloperidol [From Haldol] Allergy Other Verified 06/12/22 09:21 nalbuphine HCl [From Nubain] Allergy Hives Verified 11/02/21 14:05 nifedipine [From Procardia] Allergy Swelling Verified 11/02/21 14:05 Penicillins Allergy Swelling Verified 11/02/21 14:05 quetiapine fumarate Allergy Other Verified 11/02/21 14:05 [From Seroquel] risperidone [From Risperdal] Allergy Hives Verified 11/02/21 14:05 ziprasidone HCl [From Geodon] Allergy Other Verified 11/02/21 14:05 ziprasidone mesylate Allergy Other Verified 11/02/21 14:05 [From Geodon] Social History household members: significant other Smoking Status: Current every day smoker tobacco type: cigarettes alcohol intake: current substance use type: other EXAM Physical Exam Const Vital Signs: 11/17/22 11:41 Temperature 96.5 F L Temperature Source Temporal Pulse Rate 74 Respiratory Rate 18 Blood Pressure 165/60 H Blood Pressure Mean 95 Pulse Ox 99 Oxygen Delivery Method Room Air [facility] Narrative Medical decision making narrative: HISTORY OF PRESENT ILLNESS: 42-year-old female here with concern for cocaine detox. She smokes cocaine. Last use was 3 days ago on 11/14/2022. She denies any chest pain, shortness of breath, focal weakness. Denies any other drug use. Denies SI, HI, auditory or visual hallucinations. REVIEW OF SYSTEMS: Pertinent positives: None Pertinent negatives: Weakness numbness or loss of sensation PHYSICAL EXAM: Nursing triage notes reviewed, Vital signs reviewed Constitutional: please see [facility] HENT: MMM Eyes: Pupils equal round and reactive to light, Extraocular muscles intact Neck: No stridor, no JVD, full neck ROM Lungs: Clear to auscultation, No wheezing or rales. No increased work of breathing, no conversational dyspnea, no accessory muscle use, no nasal flaring. No respiratory distress noted Heart: Regular rate and rhythm, No murmurs, No rubs and No gallops, 2+ distal pulses (radial, femoral, posterior tibial) in all extremities Abdomen: Soft, there is no tenderness, rigidity, rebound or guarding, no obvious peritoneal signs, no palpable pulsatile abdominal masses, no auscultated abdominal bruit : No CVAT Extremities: No edema Neuro: Alert and oriented x3, neuro exam at baseline, cranial nerves II through XII are intact. No pain with extraocular muscle movement. There is negative test of skew. Normal speech. 5 of 5 strength in upper and lower extremities in flexion extension. Intact sensation to light touch in upper and lower extremity dermatomes. No truncal or extremity ataxia. No dysdiadochokinesia. Normal gait. 2+ reflexes. No meningeal signs. Negative Babinski. NIH of 0 Skin: No rash or lesions noted MEDICAL DECISION MAKING: Chief Complaint: Cocaine detox External records reviewed: Last urine drug screen from 12/10/2021 is negative Factors affecting care: History of bipolar 1 disorder, depression substance abuse Social determinants of health: History of polysubstance abuse and underlying psychiatric disorder History obtained from others: None Consults: None ALL IMAGES (IF OBTAINED) HAVE BEEN PERSONALLY REVIEWED AND INTERPRETED BY MYSELF. MDM Narrative: Patient was hemodynamically stable, afebrile, nontoxic-appearing. There is no focal neurologic deficits. We do not offer cocaine detoxification services here at [facility]. I did obtain a screening EKG which showed no evidence of myocardial ischemia. Patient was given community [place] instructions to refrain from using drugs. The patient and/or family, caregivers express understanding. The patient and/or family, caregivers agrees with the plan. Total critical care time today provided was at least 0 minutes. This excludes separately billable procedures. Critical care time (if documented) is secondary to the patient having high probability of clinically significant/life threatening deterioration in the patient's condition which required my urgent intervention. Shared decision making: I will have a discussion with the patient and or visitors regarding risk/benefits of further testing or admission. They will be made aware of of the risk/benefits inherent in this decision they will be given the opportunity to voice understanding. Discharge Plan Triage Chief Complaint: Substance Abuse ED Provider: Bello Lopez Dx/Rx/DC Orders Prescriptions: No Action metformin 500 mg Tablet 500 mg PO BID lithium carbonate 300 mg capsule 600 cap PO DAILY lithium carbonate 300 mg capsule 900 mg PO QHS Label Comments: take 2 capsules by mouth every morning and take 3 capsules by mouth every evening clonazepam 2 mg tablet 1 tab PO QHS Label Comments: take 1 tablet by mouth at bedtime benztropine 1 mg tablet 1 tab PO BID chlorpromazine 200 mg tablet 400 tab PO BID escitalopram oxalate 10 mg tablet 15 tab PO QHS clindamycin HCl [Cleocin HCl] 300 mg capsule 300 mg PO Q6H Qty: 28 0RF hydrocodone-acetaminophen [hydrocodone-acetaminophen] 5-325 mg tablet 1 tab PO Q6H PRN PRN (Reason: Pain) 3 Days Qty: 10 0RF Primary Care Provider: Yosvany Cox NP Referrals: Yosvany Cox NP, PROFESSOR OF BIBLICAL STUDIES-C [Primary Care Provider] -
[2022-11-17 12:48] LABS: Bedside Glucose 122 mg/dL (74-106)
== END 2022-11-17 12:54 | disposition home or self-care (01) ==
LOC: ED 12:38
PROVIDERS: Emergency Provider Emergency Medicine; PCP Nurse Practitioner Primary Care; Visit Provider Emergency Medicine
DX: F14.10 Cocaine abuse, uncomplicated (principal); F31.9 Bipolar disorder, unspecified; F17.210 Nicotine dependence, cigarettes, uncomplicated
CPT/HCPCS: 82962; 93005; 99282

== ENCOUNTER 2023-02-04 20:02 | Emergency (ER) | payer MEDICARE, MEDICAID, SELFPAY ==
[2023-02-04 20:03] VITALS: BP 162/78; PULSE 97; RESP 22; TEMP 35.9; O2SAT 99; BMI 33.1
[2023-02-04 20:11] VITALS: BP 162/78; PULSE 97; RESP 20; TEMP 35.9; O2SAT 99; BMI 33.1
--- NOTE | 2023-02-04 20:54 | CM.ED ---
Social Work Patient brought by [place] police due to mental health concerns. Pt is oriented to self only. Pt presents as psychotic, delusional, disorganized speech, paranoid and possibly manic. Pt does have a history of mental health and substance abuse issues. Pt unable to respond appropriately to SW. 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 Pt has erratic behaviors such as pacing, she went in the bathroom and came out with soaked hair and face, and is in and out of triage room. [place] police did not pink slip patient. will discuss pink slip with physician due to patient being a risk to self and others. Pt has a history of dangerous behaviors in similar psychotic episodes. Zulay Velázquez VALVE MECHANIC, METALLURGICAL LABORATORY ASSISTANT
[2023-02-04 21:19] LABS: Absolute Lymphocyte Count 3.27 X10^3/uL (0.83-4.51); Absolute Neutrophil Count 11.7 X10^3/uL (2.0-7.7); Basophil# 0.08 X10^3/uL; Basophil% 0.5 % (0-1); Eosinophil# 0.36 X10^3/uL; Eosinophils% 2.2 % (0-5); Hematocrit 40.7 % (37-47); Hemoglobin 12.3 g/dL (12.0-15.0); Lymphocyte # 3.27 X10^3/ul (0.83-4.51); Lymphocyte % 19.7 % (19-41); Mean Corp Hgb Conc 30.2 g/dL (32-36); Mean Corpuscular Hgb 24.2 pg (27.0-32.0); Mean Corpuscular Volume 80.1 fL (81-99); Mean Platelet Vol. 11.8 fl (6.2-12.0); Monocyte# 1.11 X10^3/uL; Monocyte% 6.7 % (0-10); NRBC Flagged by Analyzer 0 % (0-5); Neutrophil % 70.4 % (47-70); Platelet Count 368 K/mm3 (150-450); RBC Distribution Width CV 15.8 % (11.6-14.6); RBC Distribution Width SD 45.2 fl (35.1-43.9); Red Blood Count 5.08 M/mm3 (4.2-5.4); White Blood Count 16.6 K/mm3 (4.4-11.0)
[2023-02-04 21:30] LABS: Anion Gap 5 (5-15); BUN 16 mg/dL (7-18); Calcium,Total 9.2 mg/dL (8.5-10.1); Chloride 106 mmol/L (98-107); EST Glomerular Filtration Rate 84 mL/min (>60); Est Glom Filt Rate - Afr Amer 102 mL/min (>60); Estimated Creatinine Clearance 86.63 ml/min; Glucose 99 mg/dL (74-106); Potassium 4.1 mmol/L (3.5-5.1); Sodium Level 136 mmol/L (136-145)
[2023-02-04 21:36] LABS: Alcohol, Blood (Medical)-Serum < 3.0 mg/dL; Internal QC Validated? YES +Cl - CLEAR BKGD; Pregnancy, Serum, hCG Quali. NEGATIVE Negative
--- NOTE | 2023-02-04 21:51 | ED.RN ---
Addendum entered by Camila Silva 02/04/23 22:12: Pt states she is and is involved with [place] somehow. Pt keeps attempting to leave department with Dad to smoke. Informed by RN that facility is smoke free, [facility] security with Dad and Pt to prevent pink slipped pt from leaving. Pt was initially dropped off by Sharon GUILLEN. Officer stated that pt is not pink slipped initially, and CRISIS is aware pt is at [facility]. Officer did not offer much information about pt before leaving department. Social work involved quickly and was pink slipped. Original Note: Pt ambulating all over department and is unable to be redirected. Pt is not making sense when she is talking with staff.
[2023-02-04 23:17] LABS: Amphetamine Urine VISTA NEGATIVE (<1000 ng/mL); Barbiturate Urine VISTA NEGATIVE (< 200 ng/mL); Benzodiazepine Urine VISTA NEGATIVE (< 200 ng/mL); Cocaine Urine VISTA NEGATIVE (< 300 ng/mL); Ecstacy Urine VISTA NEGATIVE (< 500 ng/mL); Methadone Urine VISTA NEGATIVE (< 300 ng/mL); PCP Urine VISTA NEGATIVE (< 25 ng/mL); THC Urine VISTA NEGATIVE (< 50 ng/mL); Vista UDS pH Range 6
--- NOTE | 2023-02-05 | EX.ED.VIS.PS ---
HPI HPI - Psych History of Present Illness Chief Complaint: Mental Health Informant: patient Narrative Narrative: Patient referred here after having a phone call with crisis, which the patient does not want to talk about. Apparently she has had nonsensical discussions, delusions, disorganized speech and disorientation, symptoms of psychosis and was referred here for medical clearance for further management/placement from a psychiatric standpoint. The patient is very difficult to get history from, since she states she does not want to talk about certain things and then goes off on random nonsensical tangents. PFSH PFS Medical History ADD (attention deficit disorder) Bipolar 1 disorder Depression Substance abuse Home Medications metformin 500 mg tablet 500 mg PO BID 11/02/21 [History Last Taken Unknown] benztropine 1 mg tablet 1 tab PO BID 12/10/21 [History Last Taken Unknown] chlorpromazine 200 mg tablet 400 tab PO BID 12/10/21 [History Last Taken Unknown] clonazepam 2 mg tablet 1 tab PO QHS 12/10/21 [History Last Taken Unknown] escitalopram oxalate 10 mg tablet 15 tab PO QHS 12/10/21 [History Last Taken Unknown] lithium carbonate 300 mg capsule 600 cap PO DAILY 12/10/21 [History Last Taken Unknown] lithium carbonate 300 mg capsule 900 mg PO QHS 12/10/21 [History Last Taken Unknown] clindamycin HCl 300 mg capsule (Cleocin HCl) 300 mg PO Q6H #28 CAPSULES 06/12/22 [Rx Last Taken Unknown] hydrocodone-acetaminophen 5-325mg 5mg-325mg 1 tab PO Q6H PRN PRN Pain 3 days #10 TABLETS 06/12/22 [Rx Last Taken Unknown] clindamycin HCl 300 mg capsule (Cleocin HCl) 450 mg (1.5 x 300 mg) PO Q8H 7 days #32 CAPSULES 11/17/22 [Rx Last Taken Unknown] Allergy/AdvReac Type Severity Reaction Status Date / Time divalproex sodium Allergy Rash Verified 02/04/23 20:15 [From Depakote] fluphenazine enanthate Allergy Other Verified 02/04/23 20:15 [From Prolixin] fluphenazine HCl Allergy Other Verified 02/04/23 20:15 [From Prolixin] haloperidol [From Haldol] Allergy Other Verified 02/04/23 20:15 nalbuphine HCl [From Nubain] Allergy Hives Verified 02/04/23 20:15 nifedipine [From Procardia] Allergy Swelling Verified 02/04/23 20:15 Penicillins Allergy Swelling Verified 02/04/23 20:15 quetiapine fumarate Allergy Other Verified 02/04/23 20:15 [From Seroquel] risperidone [From Risperdal] Allergy Hives Verified 02/04/23 20:15 ziprasidone HCl [From Geodon] Allergy Other Verified 02/04/23 20:15 ziprasidone mesylate Allergy Other Verified 02/04/23 20:15 [From Geodon] Family History no significant family his Social History household members: significant other Smoking Status: Current every day smoker tobacco type: cigarettes alcohol intake: current substance use type: other ROS ROS ED Constitutional Constitutional ED: Denies chills or fever(s) Eyes Eyes: Denies change in vision or diplopia ENT ENT ED: Denies rhinorrhea or sore throat Cardiovascular Cardiovascular: Denies chest pain or palpitations Respiratory/Chest Respiratory/Chest: Denies cough or dyspnea Gastrointestinal Gastrointestinal: Denies abdominal pain, diarrhea, nausea or vomiting Genitourinary Genitourinary ED: Denies dysuria or hematuria Musculoskeletal Musculoskeletal: Denies back pain or neck pain Integumentary Denies abscess or rash Neurologic Neurologic: Denies headache(s), paresthesias or weakness Psychiatric Psychiatric: Reports as per HPI; Denies homicidal ideation or suicidal ideation EXAM Physical Exam Const Vital Signs: 02/04/23 20:03 02/04/23 20:11 02/05/23 01:42 Temperature 96.6 F L 96.6 F L Temperature Source Temporal Temporal Pulse Rate 97 97 Respiratory Rate 22 H 20 H 16 Blood Pressure 162/78 H 162/78 H Blood Pressure Mean 106 106 Pulse Ox 99 99 Oxygen Delivery Method Room Air Room Air Room Air Positive well nourished and well developed General Appearance ED: well developed and NAD HEENT Reports moist mucous membranes normocephalic and atraumatic Eyes PERRL and EOMs intact bilaterally General Eye ED: Negative for scleral icterus Neck no lymphadenopathy and supple Resp normal respiratory effort and clear to auscultation bilaterally Cardio no murmurs Rate: regular rate Rhythm: regular rhythm GI non-tender and non-distended Auscultation: normoactive bowel sounds Palpation: soft Back/Spine no CVA tenderness and normal ROM Extremity normal to inspection General Extremety ED: Negative for edema General Extremity: Negative for edema Neuro oriented x3, CN's II-XII intact bilaterally, no sensory deficits noted and gait normal Sensorium / Orientation: alert Motor Exam: strength 5/5 throughout Psych cooperative, activity/motor behavior normal and denies homicidal ideation; Negative for thought process normal Appearance: grossly normal Attitude: bizarre Activity / Motor Behavior: appropriate eye contact and fidgetting Speech: pressured Mood & Affect: labile affect Thought Process: disorganized, flight of ideas, illogical and loose associations Thought Content: No suicidality Attention / Concentration: attention grossly intact Skin Lesions: no lesions Rashes: no rashes MDM MDM MDM Narrative Medical decision making narrative: Other than a nonspecific leukocytosis the patient's labs are normal, toxicology negative, and she is medically cleared. Looking back at the patient's labs she always has somewhat of a leukocytosis. Referred to crisis for further evaluation/placement. Crisis agrees patient needs to be hospitalized. While observing her in waiting on this process, patient continues to pace in and out of her room, she is intermittently agitated, requiring repeated redirection to keep her in her own room. I ordered her a Zyprexa Zydis when she began screaming expletives and being more difficult to redirect. At this time she does not require physical restraint. Lab Data Attestation: I reviewed the patient's lab results. Labs: Laboratory Results - last 24 hr 02/04/23 02/04/23 20:55 22:51 WBC 16.6 H RBC 5.08 Hgb 12.3 Hct 40.7 MCV 80.1 L MCH 24.2 L MCHC 30.2 L RDW Std Deviation 45.2 H RDW Coeff of Deonte 15.8 H Plt Count 368 MPV 11.8 Immature Gran % (Auto) 0.500 Neut % (Auto) 70.4 H Lymph % (Auto) 19.7 Rooks % (Auto) 6.7 Eos % (Auto) 2.2 Baso % (Auto) 0.5 Absolute Neuts (auto) 11.7 H Absolute Lymphs (auto) 3.27 Nucleated RBC % 0 Sodium 136 Potassium 4.1 Chloride 106 Carbon Dioxide 25.0 Anion Gap 5 BUN 16 Creatinine 0.80 Estim Creat Clear Calc 86.63 Est GFR (MDRD) Af Amer 102 Est GFR (MDRD) Non-Af 84 BUN/Creatinine Ratio 20.0 Glucose 99 Calcium 9.2 Serum , Qual NEGATIVE Urine Opiates Screen NEGATIVE Urine Methadone Screen NEGATIVE Ur Barbiturates Screen NEGATIVE Ur Phencyclidine Scrn NEGATIVE Ur Amphetamines Screen NEGATIVE MDMA (Ecstasy) Screen NEGATIVE U Benzodiazepines Scrn NEGATIVE Urine Cocaine Screen NEGATIVE U Cannabinoids Screen NEGATIVE Ur Drug Screen Comment Ethyl Alcohol < 3.0 Discharge Plan Triage Chief Complaint: Mental Health ED Provider: Hero Aldana Dx/Rx/DC Orders Clinical Impression: Acute psychosis Prescriptions: No Action metformin 500 mg Tablet 500 mg PO BID lithium carbonate 300 mg capsule 600 cap PO DAILY lithium carbonate 300 mg capsule 900 mg PO QHS Patient Comments: take 2 capsules by mouth every morning and take 3 capsules by mouth every evening clonazepam 2 mg tablet 1 tab PO QHS Patient Comments: take 1 tablet by mouth at bedtime benztropine 1 mg tablet 1 tab PO BID chlorpromazine 200 mg tablet 400 tab PO BID escitalopram oxalate 10 mg tablet 15 tab PO QHS clindamycin HCl [Cleocin HCl] 300 mg capsule 300 mg PO Q6H Qty: 28 0RF hydrocodone-acetaminophen [hydrocodone-acetaminophen] 5-325 mg tablet 1 tab PO Q6H PRN PRN (Reason: Pain) 3 Days Qty: 10 0RF clindamycin HCl [Cleocin HCl] 300 mg capsule 450 mg PO Q8H 7 Days Qty: 32 0RF Primary Care Provider: Yosvany Cox NP Referrals: Yosvany Cox NP, MERRY [employer] OPERATOR-[employer] [Primary Care Provider] - Disposition Disposition: Psychiatric Hospital or Unit
[2023-02-05] MEDS: Acetaminophen 325 MG Tablet 650 MG PO (01:41)
[2023-02-05 01:42] VITALS: RESP 16
[2023-02-05] MEDS: OLANZapine 5 MG/TAB TAB.RAPDIS 10 MG PO (04:44)
[2023-02-05 05:31] VITALS: RESP 16
--- NOTE | 2023-02-05 06:14 | ED.RN ---
Spoken with Jose Miguel Obrien about possible admission.
[2023-02-05 06:44] VITALS: BP 159/67; PULSE 60; RESP 16; O2SAT 98
--- NOTE | 2023-02-05 07:08 | NURSING ---
CALLED TO SET UP TRANSPORT TO [facility]-- ETA GIVEN (2HOURS) [id number]
--- NOTE | 2023-02-05 09:10 | ED.RN ---
2 attempts at report called. once at 0840 stated they did not know where pt. was going call back. 2nd attempt just now. states they do not know where they are going.
== END 2023-02-05 09:12 ==
PROVIDERS: Emergency Provider Emergency Medicine; PCP Nurse Practitioner Primary Care; Visit Provider Emergency Medicine
DX: F23 Brief psychotic disorder (principal); F17.210 Nicotine dependence, cigarettes, uncomplicated
CPT/HCPCS: 36415; 80048; 80307; 82077; 84703; 85025; 87811; 99284

== ENCOUNTER 2023-04-04 17:00 | Emergency (ER) | payer MEDICARE, MEDICAID, SELFPAY ==
[2023-04-04 17:03] VITALS: BP 115/62; PULSE 96; RESP 20; TEMP 37; O2SAT 95; BMI 28.4
--- NOTE | 2023-04-04 17:25 | EX.ED.VIS.PS ---
HPI <IESHA De La Torre - Last Filed: 04/04/23 20:58> HPI - Psych History of Present Illness Chief Complaint: Mental Health Narrative Narrative: Patient presenting today after police were called to her home by her family due to disorganized speech, nonsensical tangents, symptoms of psychosis, and being manic. Crisis did speak with patient and recommended she be brought in. She was discharged from [facility] 5 days ago. Past medical history of schizoaffective disorder and drug abuse. PFSH <IESHA De La Torre - Last Filed: 04/04/23 20:58> [facility] Medical History ADD (attention deficit disorder) Bipolar 1 disorder Depression Substance abuse Home Medications metformin 500 mg tablet 500 mg PO BID 11/02/21 [History Last Taken Unknown] benztropine 1 mg tablet 1 tab PO BID 12/10/21 [History Last Taken Unknown] chlorpromazine 200 mg tablet 400 tab PO BID 12/10/21 [History Last Taken Unknown] clonazepam 2 mg tablet 1 tab PO QHS 12/10/21 [History Last Taken Unknown] escitalopram oxalate 10 mg tablet 15 tab PO QHS 12/10/21 [History Last Taken Unknown] lithium carbonate 300 mg capsule 600 cap PO DAILY 12/10/21 [History Last Taken Unknown] lithium carbonate 300 mg capsule 900 mg PO QHS 12/10/21 [History Last Taken Unknown] clindamycin HCl 300 mg capsule (Cleocin HCl) 300 mg PO Q6H #28 CAPSULES 06/12/22 [Rx Last Taken Unknown] hydrocodone-acetaminophen 5-325mg 5mg-325mg 1 tab PO Q6H PRN PRN Pain 3 days #10 TABLETS 06/12/22 [Rx Last Taken Unknown] clindamycin HCl 300 mg capsule (Cleocin HCl) 450 mg (1.5 x 300 mg) PO Q8H 7 days #32 CAPSULES 11/17/22 [Rx Last Taken Unknown] Allergy/AdvReac Type Severity Reaction Status Date / Time divalproex sodium Allergy Rash Verified 04/04/23 17:03 [From Depakote] fluphenazine enanthate Allergy Other Verified 04/04/23 17:03 [From Prolixin] fluphenazine HCl Allergy Other Verified 04/04/23 17:03 [From Prolixin] haloperidol [From Haldol] Allergy Other Verified 04/04/23 17:03 nalbuphine HCl [From Nubain] Allergy Hives Verified 04/04/23 17:03 nifedipine [From Procardia] Allergy Swelling Verified 04/04/23 17:03 Penicillins Allergy Swelling Verified 04/04/23 17:03 quetiapine fumarate Allergy Other Verified 04/04/23 17:03 [From Seroquel] risperidone [From Risperdal] Allergy Hives Verified 04/04/23 17:03 ziprasidone HCl [From Geodon] Allergy Other Verified 04/04/23 17:03 ziprasidone mesylate Allergy Other Verified 04/04/23 17:03 [From Geodon] Social History household members: significant other Smoking Status: Current every day smoker tobacco type: cigarettes alcohol intake: current substance use type: other ROS <IESHA De La Torre - Last Filed: 04/04/23 20:58> ROS ED Review of Systems ROS Unobtainable: due to mental status EXAM <IESHA De La Torre - Last Filed: 04/04/23 20:58> Physical Exam Const Vital Signs: 04/04/23 17:03 04/04/23 22:48 Temperature 98.6 F Temperature Source Temporal Pulse Rate 96 Respiratory Rate 20 H 16 Blood Pressure 115/62 Blood Pressure Mean 79 Pulse Ox 95 Oxygen Delivery Method Room Air Positive well nourished and well developed General Appearance ED: well developed HEENT Reports normocephalic and head/scalp atraumatic Mouth ED: Yes moist mucous membranes normal Eyes PERRL and EOMs intact bilaterally Neck full ROM and supple Chest Wall inspection of chest normal Resp normal respiratory effort and clear to auscultation bilaterally Cardio regular rate and regular rhythm GI soft to palpation, non-tender, non-distended and no masses Back/Spine normal ROM and normal to inspection Extremity normal to inspection and full ROM Neuro oriented x3, CN's II-XII intact bilaterally, moves all extremities, no focal motor deficits and no sensory deficits noted Sensorium / Orientation: awake and alert Psych Attitude: bizarre, uncooperative and agitated Thought Process: disorganized and tangential Thought Content: delusion(s) Insight: poor Judgement: poor <Dr. Galen Chi MD - Last Filed: 04/04/23 23:05> Physical Exam Const Vital Signs: 04/04/23 17:03 04/04/23 22:48 Temperature 98.6 F Temperature Source Temporal Pulse Rate 96 Respiratory Rate 20 H 16 Blood Pressure 115/62 Blood Pressure Mean 79 Pulse Ox 95 Oxygen Delivery Method Room Air MDM <IESHA De La Torre - Last Filed: 04/04/23 20:58> [facility] MDM Narrative Medical decision making narrative: Patient presenting today due to symptoms of psychosis. She has a history of schizoaffective disorder and was recently discharged from [facility]. Please were called to her home today after her family found her to be manic and delusional. She is I will obtain them to evaluate patient she states, did you shoot me in the back. She then said, your pen is blinding me. She is nonsensical and in acute psychosis. Clearance labs will be obtained and crisis will come evaluate patient. Patient is cleared for placement from our standpoint. Lab Data Attestation: I reviewed the patient's lab results. Lab results narrative: H&H 10.0 and 32 5 Labs: Laboratory Results - last 24 hr 04/04/23 04/04/23 17:35 22:22 WBC 9.9 RBC 4.12 L Hgb 10.0 L Hct 32.5 L MCV 78.9 L MCH 24.3 L MCHC 30.8 L RDW Std Deviation 47.3 H RDW Coeff of Deonte 16.5 H Plt Count 336 MPV 10.7 Immature Gran % (Auto) 0.500 Neut % (Auto) 69.0 Lymph % (Auto) 19.7 [place] % (Auto) 6.4 Eos % (Auto) 3.8 Baso % (Auto) 0.6 Absolute Neuts (auto) 6.8 Absolute Lymphs (auto) 1.94 Nucleated RBC % 0 Sodium 139 Potassium 4.0 Chloride 106 Carbon Dioxide 30.0 Anion Gap 3 L BUN 11 Creatinine 0.80 Estim Creat Clear Calc 86.63 Est GFR (MDRD) Af Amer 101 Est GFR (MDRD) Non-Af 84 BUN/Creatinine Ratio 13.7 Glucose 99 Calcium 8.7 Serum , Qual NEGATIVE Urine Opiates Screen NEGATIVE Urine Methadone Screen NEGATIVE Ur Barbiturates Screen NEGATIVE Ur Phencyclidine Scrn NEGATIVE Ur Amphetamines Screen NEGATIVE MDMA (Ecstasy) Screen NEGATIVE U Benzodiazepines Scrn NEGATIVE Urine Cocaine Screen NEGATIVE U Cannabinoids Screen NEGATIVE Ur Drug Screen Comment Ethyl Alcohol < 3.0 <Dr. Galen Chi MD - Last Filed: 04/04/23 23:05> [facility] Lab Data Labs: Laboratory Results - last 24 hr 04/04/23 04/04/23 17:35 22:22 WBC 9.9 RBC 4.12 L Hgb 10.0 L Hct 32.5 L MCV 78.9 L MCH 24.3 L MCHC 30.8 L RDW Std Deviation 47.3 H RDW Coeff of [place]onte 16.5 H Plt Count 336 MPV 10.7 Immature Gran % (Auto) 0.500 Neut % (Auto) 69.0 Lymph % (Auto) 19.7 [place] % (Auto) 6.4 Eos % (Auto) 3.8 Baso % (Auto) 0.6 Absolute Neuts (auto) 6.8 Absolute Lymphs (auto) 1.94 Nucleated RBC % 0 Sodium 139 Potassium 4.0 Chloride 106 Carbon Dioxide 30.0 Anion Gap 3 L BUN 11 Creatinine 0.80 Estim Creat Clear Calc 86.63 Est GFR (MDRD) Af Amer 101 Est GFR (MDRD) Non-Af 84 BUN/Creatinine Ratio 13.7 Glucose 99 Calcium 8.7 Serum , Qual NEGATIVE Urine Opiates Screen NEGATIVE Urine Methadone Screen NEGATIVE Ur Barbiturates Screen NEGATIVE Ur Phencyclidine Scrn NEGATIVE Ur Amphetamines Screen NEGATIVE MDMA (Ecstasy) Screen NEGATIVE U Benzodiazepines Scrn NEGATIVE Urine Cocaine Screen NEGATIVE U Cannabinoids Screen NEGATIVE Ur Drug Screen Comment Ethyl Alcohol < 3.0 Treatment and Re-Evaluation Narrative: I have personally performed a face to face assessment of the patient and have reviewed the KARLEE Note. I performed a substantive portion of the visit including all aspects of the following. My borja findings include: History: Patient evidently has a history of schizophrenia and drug abuse. She was recently in psychiatric facility until about 5 days ago. She evidently has been having disorganized thought bizarre behavior. Police were called. Evidently crisis is already talked with her and recommended she come in because of her behavior. Patient is really not able to help with her evaluation. She has somewhat bizarre affect. She does not answer questions directly. Exam: Patient is awake and alert. She is reasonably dressed. She is stable of gait coordinated. Her lungs are clear. Saturations are normal. Heart is regular. Mucous membranes do not look notably dry. I see no sign of significant trauma. But the patient has very disorganized thoughts. She has bizarre behavior. She cannot keep on task at all. Medical Decision Making: We will have medical screening done. As long as she is medically clear we will work to have placement to stabilize her. Clinically, I do believe that this is due to mostly psychiatric illness and not acute medical complications. The patient's CBC does show some mild anemia. The platelets are normal. White count is normal. The patient's BMP shows no marked abnormality The patient's serum is negative. Alcohol is negative. Urine toxicology screen is pending. But there is nothing on the screen that would alter her medical clearance. Her COVID is negative. Patient is medically cleared for psychiatric evaluation and admission if needed. Final urine toxicology did come back as negative. Patient has been coming in and out of her room. She is asking about different foods. She will oftentimes asked the same questions. But she is being reasonably cooperative. No indication for medications or sedation at this time. Discharge Plan Triage Chief Complaint: Mental Health ED Midlevel Provider: Virginia Bartholomew ED Provider: Galen Chi Dx/Rx/DC Orders Clinical Impression: Acute psychosis, Schizoaffective disorder Prescriptions: No Action metformin 500 mg Tablet 500 mg PO BID lithium carbonate 300 mg capsule 600 cap PO DAILY lithium carbonate 300 mg capsule 900 mg PO QHS Patient Comments: take 2 capsules by mouth every morning and take 3 capsules by mouth every evening clonazepam 2 mg tablet 1 tab PO QHS Patient Comments: take 1 tablet by mouth at bedtime benztropine 1 mg tablet 1 tab PO BID chlorpromazine 200 mg tablet 400 tab PO BID escitalopram oxalate 10 mg tablet 15 tab PO QHS clindamycin HCl [Cleocin HCl] 300 mg capsule 300 mg PO Q6H Qty: 28 0RF hydrocodone-acetaminophen [hydrocodone-acetaminophen] 5-325 mg tablet 1 tab PO Q6H PRN PRN (Reason: Pain) 3 Days Qty: 10 0RF clindamycin HCl [Cleocin HCl] 300 mg capsule 450 mg PO Q8H 7 Days Qty: 32 0RF Primary Care Provider: Yosvany Cox NP Referrals: Yosvany Cox BRICK PAVING CHECKER, BRICK PAVING CHECKER-C [Primary Care Provider] - Disposition Disposition: Psychiatric Hospital or Unit
[2023-04-04 17:44] LABS: Absolute Lymphocyte Count 1.94 X10^3/uL (0.83-4.51); Absolute Neutrophil Count 6.8 X10^3/uL (2.0-7.7); Basophil# 0.06 X10^3/uL; Basophil% 0.6 % (0-1); Eosinophil# 0.37 X10^3/uL; Eosinophils% 3.8 % (0-5); Hematocrit 32.5 % (37-47); Lymphocyte # 1.94 X10^3/ul (0.83-4.51); Lymphocyte % 19.7 % (19-41); Mean Corp Hgb Conc 30.8 g/dL (32-36); Mean Corpuscular Hgb 24.3 pg (27.0-32.0); Mean Corpuscular Volume 78.9 fL (81-99); Mean Platelet Vol. 10.7 fl (6.2-12.0); Monocyte# 0.63 X10^3/uL; Monocyte% 6.4 % (0-10); NRBC Flagged by Analyzer 0 % (0-5); Platelet Count 336 K/mm3 (150-450); RBC Distribution Width CV 16.5 % (11.6-14.6); RBC Distribution Width SD 47.3 fl (35.1-43.9); Red Blood Count 4.12 M/mm3 (4.2-5.4); White Blood Count 9.9 K/mm3 (4.4-11.0)
[2023-04-04 17:59] LABS: Anion Gap 3 (5-15); BUN 11 mg/dL (7-18); BUN/Creat Ratio 13.7 RATIO (10-20); Calcium,Total 8.7 mg/dL (8.5-10.1); Chloride 106 mmol/L (98-107); EST Glomerular Filtration Rate 84 mL/min (>60); Est Glom Filt Rate - Afr Amer 101 mL/min (>60); Estimated Creatinine Clearance 86.63 ml/min; Glucose 99 mg/dL (74-106); Sodium Level 139 mmol/L (136-145)
[2023-04-04 18:09] LABS: Alcohol, Blood (Medical)-Serum < 3.0 mg/dL
[2023-04-04 18:11] LABS: Internal QC Validated? YES +Cl - CLEAR BKGD; Pregnancy, Serum, hCG Quali. NEGATIVE Negative
[2023-04-04 22:47] LABS: Amphetamine Urine VISTA NEGATIVE (<1000 ng/mL); Barbiturate Urine VISTA NEGATIVE (< 200 ng/mL); Benzodiazepine Urine VISTA NEGATIVE (< 200 ng/mL); Cocaine Urine VISTA NEGATIVE (< 300 ng/mL); Ecstacy Urine VISTA NEGATIVE (< 500 ng/mL); Methadone Urine VISTA NEGATIVE (< 300 ng/mL); PCP Urine VISTA NEGATIVE (< 25 ng/mL); THC Urine VISTA NEGATIVE (< 50 ng/mL); Vista UDS pH Range 6
[2023-04-04 22:48] VITALS: RESP 16
--- NOTE | 2023-04-05 00:44 | ED.RN ---
[facility] called checking up on pt's behavior and if pt required any I.M. medications, pt has not been aggressive towards staff nor given any I.M. medications.
[2023-04-05 03:13] VITALS: BP 138/73; PULSE 60; RESP 16; TEMP 35.7; O2SAT 98
--- NOTE | 2023-04-05 03:18 | ED.RN ---
attempted to call report to [phone] Mauro Mancilla, no one available at this time, left message to call [facility].
[2023-04-05 04:16] VITALS: BP 138/73; PULSE 60; RESP 16; TEMP 35.7; O2SAT 98
[2023-04-05] MEDS: LORazepam 2 MG/ML Syringe IM (05:20)
[2023-04-05] MEDS: DiphenhydrAMINE 50 MG/ML Syringe IM (05:20)
[2023-04-05 07:17] VITALS: RESP 14
== END 2023-04-05 08:58 ==
PROVIDERS: Physician Assistant; Emergency Provider Emergency Medicine; PCP Nurse Practitioner Primary Care; Visit Provider Emergency Medicine
DX: F23 Brief psychotic disorder (principal); F25.9 Schizoaffective disorder, unspecified; F19.19 Other psychoactive substance abuse with unspecified psychoactive substance-induced disorder; D64.9 Anemia, unspecified; F17.210 Nicotine dependence, cigarettes, uncomplicated
CPT/HCPCS: 80048; 80307; 82077; 84703; 85025; 87811; 96372; 99283

== ENCOUNTER 2023-05-24 12:35 | Emergency (ER) | payer MEDICARE, MEDICAID, SELFPAY ==
[2023-05-24 12:37] VITALS: BP 105/86; PULSE 86; RESP 19; TEMP 36; O2SAT 99
--- NOTE | 2023-05-24 13:04 | EKG12_ITS ---
Test Reason : DYSRHYTHMIA Blood Pressure : / mmHG Vent. Rate : 052 BPM Atrial Rate : 052 BPM P-R Int : 142 ms QRS Dur : 078 ms QT Int : 420 ms P-R-T Axes : 016 018 036 degrees QTc Int : 390 ms Poor data quality, interpretation may be adversely affected Sinus bradycardia Cannot rule out Anterior infarct , age undetermined Abnormal ECG Confirmed by MARIAH BROWN MD ([id number]), city editor LETICIA MAURICIO ([id number]) on 05/31/2023 8:11:29 AM Referred By: VANCE Confirmed By:MARIAH BROWN MD
--- NOTE | 2023-05-24 13:47 | EDS_ITS ---
HPI HPI - Psych History of Present Illness Chief Complaint: Mental Health Narrative Narrative: 33-year-old female presenting with psychosis. Her geriatric case manager Ata Parada sent her in. Patient has severe psychosis apparently. He does not believe she can care for herself. He reports that the patient believes she is a range scientist and her geriatric case manager is a ammunition assembly ii laborer. Apparently she had become agitated with him today. No SI or HI. The patient herself states that she is a Luna doll and points to the necklace she is wearing as an anchor that holds her to the ground otherwise she started flying. She then states that this is how she makes baby frogs and needed few hand gestures and clipped her fingers. She states I get high and again low. She then said a few words that I could not understand and walked in circles in the room. [facility] Medical History ADD (attention deficit disorder) Bipolar 1 disorder Depression Substance abuse Home Medications metformin 500 mg tablet 500 mg PO BID 11/02/21 [History Last Taken Unknown] benztropine 1 mg tablet 1 tab PO BID 12/10/21 [History Last Taken Unknown] chlorpromazine 200 mg tablet 400 tab PO BID 12/10/21 [History Last Taken Unknown] clonazepam 2 mg tablet 1 tab PO QHS 12/10/21 [History Last Taken Unknown] escitalopram oxalate 10 mg tablet 15 tab PO QHS 12/10/21 [History Last Taken Unknown] lithium carbonate 300 mg capsule 600 cap PO DAILY 12/10/21 [History Last Taken Unknown] lithium carbonate 300 mg capsule 900 mg PO QHS 12/10/21 [History Last Taken Unknown] clindamycin HCl 300 mg capsule (Cleocin HCl) 300 mg PO Q6H #28 CAPSULES 06/12/22 [Rx Last Taken Unknown] hydrocodone-acetaminophen 5-325mg 5mg-325mg 1 tab PO Q6H PRN PRN Pain 3 days #10 TABLETS 06/12/22 [Rx Last Taken Unknown] clindamycin HCl 300 mg capsule (Cleocin HCl) 450 mg (1.5 x 300 mg) PO Q8H 7 days #32 CAPSULES 11/17/22 [Rx Last Taken Unknown] Allergy/AdvReac Type Severity Reaction Status Date / Time divalproex sodium Allergy Rash Verified 05/24/23 12:37 [From Depakote] fluphenazine enanthate Allergy Other Verified 05/24/23 12:37 [From Prolixin] fluphenazine HCl Allergy Other Verified 05/24/23 12:37 [From Prolixin] haloperidol [From Haldol] Allergy Other Verified 05/24/23 12:37 nalbuphine HCl [From Nubain] Allergy Hives Verified 05/24/23 12:37 nifedipine [From Procardia] Allergy Swelling Verified 05/24/23 12:37 Penicillins Allergy Swelling Verified 05/24/23 12:37 quetiapine fumarate Allergy Other Verified 05/24/23 12:37 [From Seroquel] risperidone [From Risperdal] Allergy Hives Verified 05/24/23 12:37 ziprasidone HCl [From Geodon] Allergy Other Verified 05/24/23 12:37 ziprasidone mesylate Allergy Other Verified 05/24/23 12:37 [From Geodon] Social History household members: significant other Smoking Status: Current every day smoker tobacco type: cigarettes alcohol intake: current substance use type: other ROS ROS ED Review of Systems ROS Unobtainable: due to mental status Genitourinary Genitourinary ED: Reports urinary frequency EXAM Physical Exam Const Vital Signs: 05/24/23 12:37 Temperature 96.8 F L Temperature Source Temporal Pulse Rate 86 Respiratory Rate 19 H Blood Pressure 105/86 H Blood Pressure Mean 92 Pulse Ox 99 Oxygen Delivery Method Room Air Positive well nourished and unkempt General Appearance ED: unkempt, irritable and NAD HEENT Reports moist mucous membranes normocephalic and atraumatic Eyes PERRL and EOMs intact bilaterally Resp normal respiratory effort and clear to auscultation bilaterally Cardio Rate: regular rate Rhythm: regular rhythm Neuro CN's II-XII intact bilaterally Sensorium / Orientation: alert Motor Exam: strength 5/5 throughout Psych denies homicidal ideation and denies suicidal ideation Appearance: unkempt, disheveled and bizarre Attitude: paranoid, bizarre and agitated Activity / Motor Behavior: psychomotor agitation, fidgetting and disorganized Speech: pressured Mood & Affect: irritable Thought Process: circumstantial, disorganized, confused and flight of ideas Thought Content: No suicidality, No homicidality and delusion(s) Delusional Thought Content Details: Positive for paranoid Attention / Concentration: attention grossly impaired and concentration grossly impaired Memory / Cognition: memory grossly impaired Insight: poor Judgement: poor MDM MDM MDM Narrative Medical decision making narrative: 43-year-old female with history of bipolar disorder presenting with acute psychosis. She denies SI or HI. She does have bizarre kind of paranoid behavior. She is making hand gestures and statements. She is hard to redirect. Appropriate screening lab work was obtained. CBC within normal limits. BMP is also normal. Urine drug screen, EtOH pending. Rapid COVID pending. [place] level pending. Patient will likely need to be placed signed out incoming ED p hysician for management of shortness can occur. Impression: 1. Acute psychosis 2. History of bipolar disorder Lab Data Attestation: I reviewed the patient's lab results. Labs: Laboratory Results - last 24 hr 05/24/23 14:28 WBC 10.8 RBC 4.80 Hgb 12.0 Hct 39.3 MCV 81.9 MCH 25.0 L MCHC 30.5 L RDW Std Deviation 50.2 H RDW Coeff of Deonte 16.7 H Plt Count 361 MPV 10.1 Immature Gran % (Auto) 0.300 Neut % (Auto) 63.3 Lymph % (Auto) 26.8 [place] % (Auto) 6.2 Eos % (Auto) 2.9 Baso % (Auto) 0.5 Absolute Neuts (auto) 6.9 Absolute Lymphs (auto) 2.90 Nucleated RBC % 0 Sodium 141 Potassium 3.9 Chloride 110 H Carbon Dioxide 27.0 Anion Gap 4 L BUN 11 Creatinine 0.72 Est GFR (MDRD) Af Amer 114 Est GFR (MDRD) Non-Af 94 BUN/Creatinine Ratio 15.2 Glucose 111 H Calcium 9.1 Discharge Plan Triage Chief Complaint: Mental Health ED Provider: Juarez Kinney Dx/Rx/DC Orders Prescriptions: No Action metformin 500 mg Tablet 500 mg PO BID lithium carbonate 300 mg capsule 600 cap PO DAILY lithium carbonate 300 mg capsule 900 mg PO QHS Patient Comments: take 2 capsules by mouth every morning and take 3 capsules by mouth every evening clonazepam 2 mg tablet 1 tab PO QHS Patient Comments: take 1 tablet by mouth at bedtime benztropine 1 mg tablet 1 tab PO BID chlorpromazine 200 mg tablet 400 tab PO BID escitalopram oxalate 10 mg tablet 15 tab PO QHS clindamycin HCl [Cleocin HCl] 300 mg capsule 300 mg PO Q6H Qty: 28 0RF hydrocodone-acetaminophen [hydrocodone-acetaminophen] 5-325 mg tablet 1 tab PO Q6H PRN PRN (Reason: Pain) 3 Days Qty: 10 0RF clindamycin HCl [Cleocin HCl] 300 mg capsule 450 mg PO Q8H 7 Days Qty: 32 0RF Primary Care Provider: Yosvany Cox NP Referrals: Yosvany Cox NP, TAR PROCESSING TECHNICIAN-C [Primary Care Provider] -
[2023-05-24 14:38] LABS: Absolute Neutrophil Count 6.9 X10^3/uL (2.0-7.7); Basophil# 0.05 X10^3/uL; Basophil% 0.5 % (0-1); Eosinophil# 0.31 X10^3/uL; Eosinophils% 2.9 % (0-5); Hematocrit 39.3 % (37-47); Lymphocyte % 26.8 % (19-41); Mean Corp Hgb Conc 30.5 g/dL (32-36); Mean Corpuscular Volume 81.9 fL (81-99); Mean Platelet Vol. 10.1 fl (6.2-12.0); Monocyte# 0.67 X10^3/uL; Monocyte% 6.2 % (0-10); NRBC Flagged by Analyzer 0 % (0-5); Neutrophil # 6.86 X10^3/uL (2.7-7.7); Neutrophil % 63.3 % (47-70); Platelet Count 361 K/mm3 (150-450); RBC Distribution Width CV 16.7 % (11.6-14.6); RBC Distribution Width SD 50.2 fl (35.1-43.9); White Blood Count 10.8 K/mm3 (4.4-11.0)
[2023-05-24 14:53] LABS: Anion Gap 4 (5-15); BUN 11 mg/dL (7-18); BUN/Creat Ratio 15.2 RATIO (10-20); Calcium,Total 9.1 mg/dL (8.5-10.1); Chloride 110 mmol/L (98-107); Creatinine, Serum 0.72 mg/dL (0.55-1.02); EST Glomerular Filtration Rate 94 mL/min (>60); Est Glom Filt Rate - Afr Amer 114 mL/min (>60); Glucose 111 mg/dL (74-106); Potassium 3.9 mmol/L (3.5-5.1); Sodium Level 141 mmol/L (136-145)
[2023-05-24 15:02] LABS: Internal QC Validated? YES +Cl - CLEAR BKGD; Pregnancy, Serum, hCG Quali. NEGATIVE Negative
[2023-05-24 15:06] LABS: Alcohol, Blood (Medical)-Serum < 3.0 mg/dL
--- NOTE | 2023-05-24 15:55 | NURSING ---
FAXED CHART TO CRISIS
[2023-05-24 16:12] VITALS: BP 140/81; PULSE 78; RESP 16; O2SAT 95
[2023-05-24 16:51] LABS: Amphetamine Urine VISTA NEGATIVE (<1000 ng/mL); Barbiturate Urine VISTA NEGATIVE (< 200 ng/mL); Benzodiazepine Urine VISTA NEGATIVE (< 200 ng/mL); Cocaine Urine VISTA NEGATIVE (< 300 ng/mL); Ecstacy Urine VISTA NEGATIVE (< 500 ng/mL); Methadone Urine VISTA NEGATIVE (< 300 ng/mL); PCP Urine VISTA NEGATIVE (< 25 ng/mL); THC Urine VISTA NEGATIVE (< 50 ng/mL); Vista UDS pH Range 6
--- NOTE | 2023-05-24 19:51 | ED.RN ---
DECLINED AT SUN [facility]. REFERRED TO [facility].
[2023-05-24 20:00] VITALS: RESP 15
[2023-05-24 22:00] VITALS: RESP 15
--- NOTE | 2023-05-25 01:10 | ED.RN ---
[facility] TO RE-REVIEW AFTER AM DISCHARGES. AT MAX BED CAPACITY.
[2023-05-25] MEDS: Escitalopram Oxalate 10 MG Tablet 5 MG PO (01:50)
[2023-05-25 04:06] VITALS: PULSE 59; RESP 15; O2SAT 99
[2023-05-25 07:15] VITALS: BP 137/94; PULSE 78; RESP 18
[2023-05-25 09:00] VITALS: RESP 16
== END 2023-05-25 10:36 ==
PROVIDERS: Emergency Provider Student in an Organized Health Care Education/Training Program; PCP Nurse Practitioner Primary Care; Visit Provider Student in an Organized Health Care Education/Training Program
DX: F23 Brief psychotic disorder (principal); F31.9 Bipolar disorder, unspecified; F17.210 Nicotine dependence, cigarettes, uncomplicated; R35.0 Frequency of micturition; R45.1 Restlessness and agitation
CPT/HCPCS: 80048; 80178; 80307; 80320; 84703; 85025; 87426; 93005; 99283; G0480; J3486

== ENCOUNTER → 2024-11-06 | Outpatient (CLI) | payer MEDICARE, MEDICAID, SELFPAY | END | disposition home or self-care (01) | PROVIDERS: PCP Nurse Practitioner Primary Care; Referring Provider Internal Medicine; Visit Provider Internal Medicine | DX: G47.10 Hypersomnia, unspecified (principal) | CPT/HCPCS: 95810 ==

== ENCOUNTER → 2024-12-03 | Outpatient (CLI) | payer MEDICARE, MEDICAID, SELFPAY ==
[2024-12-03 15:29] LABS: Mucous, Urine 0 SEEN /hpf (<or=2+)
[2024-12-03 17:47] LABS: Color, Urine Straw (Yellow); Glucose, Dipstick Normal (Normal); Ketone-Dipstick Negative (Negative); Leukocyte Esterase-Dipstick 500 /ul (Negative); Nitrite-Dipstick Positive (Negative); Occult Blood-Urine 10 /ul (Negative); Protein-Dipstick 15 mg/dl (Negative); Specific Gravity, Urine 1.015 (1.002-1.030); Urine Bilirubin Dipstick Negative (Negative)
[2024-12-03 18:19] LABS: Squamous Epithelial Cells - UA 0-5 SEEN /hpf (5-10)
[2024-12-03 18:20] LABS: Red Blood Cells-Urine 0-5 SEEN /hpf (0-5)
== END | disposition home or self-care (01) ==
LOC: LABSPEC 15:28
PROVIDERS: PCP Internal Medicine; Referring Provider Internal Medicine; Visit Provider Internal Medicine
DX: R10.2 Pelvic and perineal pain (principal)
CPT/HCPCS: 81001; 87077; 87086; 87088; 87186

== ENCOUNTER 2025-05-06 16:04 | Emergency (ER) | payer MEDICARE, MEDICAID, SELFPAY ==
[2025-05-06 16:08] VITALS: BP 131/82; PULSE 61; RESP 20; TEMP 36.1; O2SAT 100; BMI 38.0
--- NOTE | 2025-05-06 16:30 | EX.ED.DYSGE1 ---
HPI History of Present Illness Chief Complaint: General Illness Informant: patient Onset/Context/Timing Onset: Weeks Context: Gradual Onset Timing: Continuous Quality: Pressure Location: Lower face Worsened by: Nothing Relieved by: Nothing Narrative Narrative: Patient presents with facial swelling that began 3 weeks ago. Patient states it is constant. Patient states that she feels pressure over her lower face. Patient states nothing makes it worse and nothing makes it better. Patient admits to some subjective chills. Patient is concerned that she may be developing an abscess. Patient states she recently relapsed on methamphetamines. Patient has been on clindamycin with minimal relief. [facility] Medical History (Updated 05/06/25 @ 17:[address] Donald Shen, DO) History of blood transfusion ADD (attention deficit disorder) Substance abuse Depression Bipolar 1 disorder Medical History no medical history Home Medications ?Medication ?Instructions ?Recorded ?Last Taken ?Type metformin 500 mg tablet 500 mg PO DAILY 11/02/21 Unknown History benztropine 1 mg tablet 1 mg PO BID 09/26/24 Unknown History blood-glucose meter (Accu-Chek #1 ea 09/26/24 Unknown Rx Guide Me Glucose Meter) buspirone 10 mg tablet 10 mg PO BID 09/26/24 Unknown History clozapine 100 mg tablet 300 mg PO QHS 09/26/24 05/05/25 History epinephrine 0.3 mg/0.3 mL 0.3 ml IM Q5-15M PRN anaphylaxis 09/26/24 Unknown Rx injection, auto-injector #2 ea lithium carbonate 600 mg capsule 600 mg PO BID 09/26/24 04/15/25 History sennosides 8.6 mg-docusate sodium 1 tab-cap PO BID 09/26/24 Unknown History 50 mg tablet (Laxative Stool Softener With Senna) lancets (Accu-Chek Softclix #100 ea 09/27/24 Unknown Rx Lancets) lancing device #1 ea 10/10/24 Unknown Rx blood sugar diagnostic (Accu-Chek #100 ea 12/03/24 Unknown Rx Guide test strips) aripiprazole lauroxil 882 mg/3.2 882 mg IM .COMPLEX 05/06/25 Unknown History mL suspension, ext.rel. IM syringe (Aristada) clindamycin HCl 150 mg capsule 150 mg PO TID 05/06/25 Unknown History Allergy/AdvReac Type Severity Reaction Status Date / Time bee venom protein (honey Allergy Other Verified 05/06/25 16:10 bee) (bee sting) divalproex sodium (From Allergy Rash Verified 05/06/25 16:10 Depakote) fluphenazine enanthate (From Allergy Other Verified 05/06/25 16:10 Prolixin) fluphenazine HCl (From Allergy Other Verified 05/06/25 16:10 Prolixin) haloperidol (From Haldol) Allergy Other Verified 05/06/25 16:10 nalbuphine HCl (From Nubain) Allergy Hives Verified 05/06/25 16:10 nifedipine (From Procardia) Allergy Swelling Verified 05/06/25 16:10 Penicillins Allergy Swelling Verified 05/06/25 16:10 quetiapine fumarate (From Allergy Other Verified 05/06/25 16:10 Seroquel) risperidone (From Risperdal) Allergy Hives Verified 05/06/25 16:10 ziprasidone HCl (From Geodon) Allergy Other Verified 05/06/25 16:10 ziprasidone mesylate (From Allergy Other Verified 05/06/25 16:10 Geodon) Family History Mother Essential tremor IBS (irritable bowel syndrome) Grandmother Cancer lymphoma Unknown Cancer leukemia Surgical History (Updated 05/06/25 @ 17:[address] Donald Shen, ) H/O section Surgical History no surgical history Social History household members: other details: roommate current occupational status: disabled current occupation: mental health Smoking Status: Heavy Smoker (>10/day) Electronic Cigarette Use: with nicotine quit status: considering quitting alcohol intake: never substance use type: crack/cocaine and methamphetamine do you feel safe at home: Yes ROS ROS ED Constitutional Constitutional ED: Reports chills and subjective; Denies fever(s) Eyes Eyes: Denies blurry vision or change in vision ENT ENT ED: Reports ear pain right, rhinorrhea and sore throat Cardiovascular Cardiovascular: Reports palpitations; Denies chest pain Respiratory/Chest Respiratory/Chest: Reports dyspnea; Denies cough Gastrointestinal Gastrointestinal: Reports nausea and vomiting Genitourinary Genitourinary ED: Denies dysuria or hematuria Musculoskeletal Musculoskeletal: Reports back pain; Denies neck pain Integumentary Denies abscess or rash Neurologic Neurologic: Denies headache(s) or weakness Allergic/Immunologic Allergic/Immunologic ED: Denies mouth swelling or urticaria EXAM Physical Exam Const Vital Signs: 05/06/25 16:08 05/06/25 16:16 Temperature 96.9 F L Temperature Source Temporal Pulse Rate 61 Respiratory Rate 20 H Respiratory Effort Normal Respiratory Pattern Normal Blood Pressure 131/82 H Blood Pressure Mean 98 Pulse Ox 100 Oxygen Delivery Method Room Air Positive well nourished and well developed General Appearance ED: well developed and NAD HEENT Reports moist mucous membranes HEENT Narrative: There is some gingival edema noted. There is no erythema noted. There is no fluctuance noted. Oropharynx is clear. Airway is patent. There is no sublingual erythema. There is mild tenderness. There is no fullness. Neck supple and no JVD Resp normal respiratory effort and clear to auscultation bilaterally Cardio regular rate and regular rhythm GI non-tender and non-distended Palpation: soft Extremity normal to inspection General Extremety ED: Negative for edema or tenderness General Extremity: Negative for edema Neuro oriented x3 Sensorium / Orientation: alert Motor Exam: strength 5/5 throughout Psych mental status grossly normal MDM MDM MDM Narrative Medical decision making narrative: Differential diagnosis includes sublingual abscess, sialoadenitis, sialolithiasis, parapharyngeal abscess, and anxiety. CBC will be obtained to assess for leukocytosis and anemia. Basic metabolic profile will be obtained to assess for electrolyte abnormality renal function. Soft tissue neck CT will be obtained to assess for parapharyngeal and sublingual abscess. Lab Data Attestation: I reviewed the patient's lab results. Lab results narrative: CBC was reviewed. There is a slight anemia with a hemoglobin of 11.7. The remainder is within normal limits. Basic metabolic profile was reviewed and was within normal limits. Labs: Laboratory Results - last 24 hr 05/06/25 16:47 WBC 10.5 RBC 4.68 Hgb 11.7 L Hct 38.1 MCV 81.4 MCH 25.0 L MCHC 30.7 L RDW Std Deviation 46.7 H RDW Coeff of Deonte 15.7 H Plt Count 283 MPV 11.1 Immature Gran % (Auto) 0.400 Neut % (Auto) 60.4 Lymph % (Auto) 26.8 [place] % (Auto) 8.6 Eos % (Auto) 3.2 Baso % (Auto) 0.6 Absolute Neuts (auto) 6.4 Absolute Lymphs (auto) 2.82 Nucleated RBC % 0 Sodium 143 Potassium 4.0 Chloride 106 Carbon Dioxide 28.0 Anion Gap 9 BUN 8 Creatinine 0.62 L Estim Creat Clear Calc 144.57 Est GFR (MDRD) Non-Af 113 BUN/Creatinine Ratio 13.5 Glucose 106 H Calcium 9.6 Radiography Diagnostic Testing: Clinical Impression(s) from Imaging Studies Soft Tissue Neck CT 05/06/25 17:00 IMPRESSION: No abnormal masses fluid collections or lymphadenopathy. Reading Location: [place] [id number] CT scan of the soft tissue neck was obtained. There is no mass or fluid collection. There is no lymphadenopathy noted. There is no acute abnormality noted. This was interpreted by the radiologist. I also independently reviewed the images and I did not see any evidence of any abscess or airway compromise. Treatment and Re-Evaluation :: Patient was advised of her findings. Patient is feeling better on reevaluation. Patient was instructed to continue her clindamycin as prescribed until gone. Patient was instructed to return if worse in any way. Patient was instructed to follow-up with her primary care physician in 5 to 7 days. Patient understood and was agreeable with the plan. All questions were answered. Discharge Plan Triage Chief Complaint: General Illness ED Provider: Donald Shen Dx/Rx/DC Orders Clinical Impression: Gingivitis, Type 2 diabetes mellitus Instructions: Your Mouth: Keeping It Healthy, Understanding Gingivitis Prescriptions: No Action clozapine 100 mg tablet 300 mg PO QHS buspirone 10 mg tablet 10 mg PO BID lithium carbonate 600 mg capsule 600 mg PO BID Patient Comments: pt states stopped taking roughly 3 weeks weeks ago as of 05/06/25 but should still be taking sennosides-docusate sodium [Lax Stool Softener With Senna] 8.6-50 mg tablet 1 tab-cap PO BID benztropine 1 mg tablet 1 mg PO BID epinephrine 0.3 mg/0.3 mL auto-injector 0.3 ml IM Q5-15M PRN (Reason: anaphylaxis) Qty: 2 0RF Rx Instructions: do not exceed 3 doses per episode (DME) blood-glucose meter [Accu-Chek Guide Me Glucose Mtr] Misc See Rx Instructions .Route Qty: 1 0RF Rx Instructions: As directed (DME) Accu-Chek Guide test strips Strip See Rx Instructions .Route Qty: 100 0RF Rx Instructions: daily metformin 500 mg Tablet 500 mg PO DAILY clindamycin HCl 150 mg capsule 150 mg PO TID Aristada 882 mg/3.2 mL suspension,extended rel syring 882 mg IM .COMPLEX Patient Comments: pt states not taking but has been receiving monthly. Rx Instructions: 882 mg intramuscularly monthly; (DME) lancets [Accu-Chek Softclix Lancets] Misc See Rx Instructions .Route Qty: 100 0RF Rx Instructions: As directed daily to check blood glucose (DME) lancing device Misc See Rx Instructions .Route Qty: 1 0RF Rx Instructions: As directed to use with lancets to check blood glucose daily Primary Care Provider: Shireen Casey Referrals: Shireen Casey MD [Primary Care Provider, Internal Medicine] - 5-7 Days Print Language: Setswana Disposition Disposition: Home, Self Care
--- NOTE | 2025-05-06 17:00 | CT_ITS ---
PROCEDURE: SOFT TISSUE NECK WITH CONTRAST 05/06/2025 REASON FOR EXAM: SWELLING TECHNIQUE: Procedure Code: CTNEW Modality: CT Procedure: SOFT TISSUE NECK WITH CONTRAST CONTRAST: Isovue-300 VOLUME: 75 mL One or more dose reduction techniques were used (e.g., Automated exposure control, adjustment of the mA and/or kV according to patient size, use of iterative reconstruction technique). RADIATION DOSE SUMMARY: CTDlvol: 20.83 mGy DLP: 553.72 mGycm COMPARISON: None FINDINGS: Airway: Normal. Salivary glands: Normal. Lymph nodes: There is no significant cervical lymphadenopathy. Thyroid: Unremarkable. Field Vasculature: Normal. Orbits: Normal. Paranasal sinuses and mastoids: There is mild nasal septal deviation to the left. The paranasal sinuses are clear. The mastoid air cells in the external, middle and inner ears appear unremarkable. Lung apices: Normal. Upper mediastinum: Normal. Bones: There is no significant abnormality of the skull base, facial bones or cervical spine. The patient is edentulous. CT/Soft Tissue Neck WITH Contrast IMPRESSION: No abnormal masses fluid collections or lymphadenopathy. Reading Location: [place] [id number]
[2025-05-06 17:06] LABS: Hematocrit 38.1 % (37-47); Hemoglobin 11.7 g/dL (12.0-15.0); Immature Granulocytes Count 0.040 X10^3/uL (0.0-0.0); Mean Corp Hgb Conc 30.7 g/dL (32-36); Mean Corpuscular Volume 81.4 fL (81-99); Mean Platelet Vol. 11.1 fl (6.2-12.0); NRBC Flagged by Analyzer 0 % (0-5); Platelet Count 283 K/mm3 (150-450); RBC Distribution Width CV 15.7 % (11.6-14.6); RBC Distribution Width SD 46.7 fl (35.1-43.9); Red Blood Count 4.68 M/mm3 (4.2-5.4); White Blood Count 10.5 K/mm3 (4.4-11.0)
[2025-05-06 17:35] LABS: Anion Gap 9 (5-15); BUN 8 mg/dL (4-19); BUN/Creat Ratio 13.5 RATIO (10-20); Calcium,Total 9.6 mg/dL (7.6-11.0); Carbon Dioxide 28.0 mmol/L (21.0-32.0); Chloride 106 mmol/L (98-108); Estimated Creatinine Clearance 144.57 ml/min (50-250); Glucose 106 mg/dL (70-99); Potassium 4.0 mmol/L (3.3-5.1)
[2025-05-06 18:02] VITALS: BP 131/82; PULSE 61; RESP 20; TEMP 36.1; O2SAT 100
== END 2025-05-06 18:05 | disposition home or self-care (01) ==
PROVIDERS: Emergency Provider Emergency Medicine; PCP Internal Medicine; Visit Provider Emergency Medicine
DX: K05.10 Chronic gingivitis, plaque induced (principal); E11.9 Type 2 diabetes mellitus without complications; F17.290 Nicotine dependence, other tobacco product, uncomplicated; Z79.899 Other long term (current) drug therapy; R06.00 Dyspnea, unspecified; R00.2 Palpitations; R11.2 Nausea with vomiting, unspecified; D64.9 Anemia, unspecified
CPT/HCPCS: 70491; 80048; 85025; 99282; Q9967; A4216